=== PATIENT | female | born 1950 | race Caucasian/White ===

== ENCOUNTER 2019-03-09 10:29 | Emergency (ER) | payer OTHER ==
[~2019-03-09] VITALS: Ht 152.4 cm; Wt 74.4 kg
[~2019-03-09 10:29] MED LIST: DIVA500EC; DIVA500ER PO; ERGO50000 PO; FOLI1; LAMO100 PO; LEVSOD50 PO; LISI20 PO; PHENY100ER
[2019-03-09] MEDS ORDERED: LEVSOD50 PO (10:57)
[2019-03-09] MEDS ORDERED: [UNRECOGNIZED DRUG - OTHER] (10:57)
[2019-03-09] MEDS ORDERED: PRAV20 (10:57)
[2019-03-09] MEDS ORDERED: TORSE20 PO (10:57)
[2019-03-09] MEDS ORDERED: LISI5 PO (10:57)
[2019-03-09] MEDS ORDERED: LOSARTAN POTASS25 M2 PO (10:57)
[2019-03-09] MEDS ORDERED: IBANDRONATE SO150 MG PO (10:57)
[2019-03-09] MEDS ORDERED: Amlodipine Bes2.5 MG (10:57)
[2019-03-09] MEDS ORDERED: Keppra750 MG PO (10:58)
[2019-03-09] MEDS ORDERED: RISEDRONATE SO150 MG PO (10:58)
[2019-03-09] MEDS ORDERED: LOSARTAN POTAS100 MG PO (10:58)
[2019-03-09] MEDS ORDERED: LEVOCETIRIZINE D5 MG PO (10:58)
[2019-03-09] MEDS ORDERED: LAMOTRIGINE200 MG PO (10:58)
[2019-03-09] MEDS ORDERED: DONE10 PO (10:58)
[2019-03-09] MEDS ORDERED: OMEPRAZOLE DR 20 MG (10:58)
[2019-03-09] MEDS ORDERED: Potassium Chlo20 ME1 PO (10:58)
[2019-03-09 11:30] LABS: BASOPHILS ABSOLUTE AUTO 0.06 K/mm3 (0.00-0.23); BASOPHILS PERCENT AUTO 1 % (0-2); EOSINOPHILS ABSOLUTE AUTO 0.15 K/mm3 (0.00-0.68); EOSINOPHILS PERCENT AUTO 3 % (0-6); Hematocrit 40.6 % (33.0-51.0); Hemoglobin 13.7 g/dL (11.5-16.0); IMMATURE GRAN ABSOLUTE AUTO 0.03 K/mm3 (0.00-0.10); IMMATURE GRAN PERCENT AUTO 1 % (0-1); LYMPHOCYTES ABSOLUTE AUTO 1.37 K/mm3 (0.84-5.20); LYMPHOCYTES PERCENT AUTO 27 % (21-46); MONOCYTES ABSOLUTE AUTO 0.46 K/mm3 (0.16-1.47); MONOCYTES PERCENT AUTO 9 % (4-13); Mean Corpuscular HGB 30.2 pg (26.0-34.0); Mean Corpuscular HGB Conc 33.7 g/dL (31.5-36.5); Mean Corpuscular Volume 90 fL (80-100); NEUTROPHILS ABSOLUTE AUTO 2.97 K/mm3 (1.96-9.15); NEUTROPHILS PERCENT AUTO 59 % (41-73); RDW Coefficient Variation 12.3 % (11.7-14.2); RDW Standard Deviation 40.2 fL (35.1-46.3); Red Blood Cell Count 4.53 M/mm3 (3.80-5.20); White Blood Cell Count 5.04 K/mm3 (4.00-11.30)
[2019-03-09 11:35] LABS: Alanine Aminotransfer (ALT/SGP 26 U/L (12-78); Albumin, Blood 3.6 g/dL (3.4-5.0); Albumin/Globulin Ratio 0.9 (0.8-1.8); Alk Phos 108 U/L (50-136); Anion Gap 9 mmol/L (6-16); Aspartate Aminotrans (AST/SGOT 23 U/L (12-37); Bilirubin, Total 0.6 mg/dL (0.1-1.0); Blood Urea Nitrogen 15 mg/dL (8-24); Bun/Creatinine Ratio 17.3 (12.0-20.0); CO2, Blood 25 mmol/L (21-32); Calcium, Blood 8.5 mg/dL (8.5-10.1); Chloride, Blood 94 mmol/L (98-108); Creatinine, Blood 0.87 mg/dL (0.40-1.00); Globulin, Blood 3.8 g/dL (2.2-4.0); Glomerular Filtration Rate >60 (60-); Glucose, Blood 92 mg/dL (70-99); Sodium, Blood 128 mmol/L (136-145); Total Protein, Blood 7.4 g/dL (6.4-8.2)
[2019-03-09 11:38] LABS: Mean Platelet Volume 9.7 fL (9.1-12.4); Platelet Count 248 K/mm3 (150-400)
[2019-03-09] MEDS ORDERED: SUCR1 PO (11:54)
[2019-03-09] MEDS ORDERED: ONDA4ODT MM (11:54)
== END 2019-03-09 12:19 | disposition home or self-care (01) ==
LOC: ER 10:29
PROVIDERS: Emergency Medicine
DX: R10.13 Epigastric pain (principal); R11.0 Nausea; I10 Essential (primary) hypertension; K21.9 Gastro-esophageal reflux disease without esophagitis; Z88.0 Allergy status to penicillin; Z88.2 Allergy status to sulfonamides; Z88.8 Allergy status to other drugs, medicaments and biological substances; Z79.899 Other long term (current) drug therapy
CPT/HCPCS: 36415; 80053; 83690; 85025; 93005; 93010; 96374; 99284-25; J2405

== ENCOUNTER 2019-03-12 15:54 | Emergency (ER) | payer OTHER ==
[~2019-03-12] VITALS: Ht 165.1 cm; Wt 86.2 kg
[~2019-03-12 15:54] MED LIST changes: +Amlodipine Bes2.5 MG; +DONE10 PO; +IBANDRONATE SO150 MG PO; +Keppra750 MG PO; +LAMOTRIGINE200 MG PO; +LEVOCETIRIZINE D5 MG PO; +LISI5 PO; +LOSARTAN POTAS100 MG PO; +LOSARTAN POTASS25 M2 PO; +OMEPRAZOLE DR 20 MG; +ONDA4ODT MM; +PRAV20; +Potassium Chlo20 ME1 PO; +RISEDRONATE SO150 MG PO; +SUCR1 PO; +TORSE20 PO; +[UNRECOGNIZED DRUG - OTHER]
[2019-03-12 19:33] LABS: BASOPHILS ABSOLUTE AUTO 0.08 K/mm3 (0.00-0.23); BASOPHILS PERCENT AUTO 1 % (0-2); EOSINOPHILS ABSOLUTE AUTO 0.08 K/mm3 (0.00-0.68); EOSINOPHILS PERCENT AUTO 1 % (0-6); Hemoglobin 14.3 g/dL (11.5-16.0); IMMATURE GRAN ABSOLUTE AUTO 0.01 K/mm3 (0.00-0.10); IMMATURE GRAN PERCENT AUTO 0 % (0-1); LYMPHOCYTES ABSOLUTE AUTO 1.42 K/mm3 (0.84-5.20); LYMPHOCYTES PERCENT AUTO 20 % (21-46); MONOCYTES ABSOLUTE AUTO 0.62 K/mm3 (0.16-1.47); MONOCYTES PERCENT AUTO 9 % (4-13); Mean Corpuscular HGB 30.8 pg (26.0-34.0); Mean Corpuscular HGB Conc 31.8 g/dL (31.5-36.5); Mean Platelet Volume 9.5 fL (9.1-12.4); NEUTROPHILS ABSOLUTE AUTO 5.03 K/mm3 (1.96-9.15); NEUTROPHILS PERCENT AUTO 70 % (41-73); Platelet Count 358 K/mm3 (150-400); RDW Coefficient Variation 12.9 % (11.7-14.2); RDW Standard Deviation 46.1 fL (35.1-46.3); Red Blood Cell Count 4.64 M/mm3 (3.80-5.20); White Blood Cell Count 7.24 K/mm3 (4.00-11.30)
[2019-03-12 19:34] LABS: Mean Corpuscular Volume 97 fL (80-100)
[2019-03-12 19:55] LABS: Alanine Aminotransfer (ALT/SGP 26 U/L (12-78); Albumin, Blood 3.9 g/dL (3.4-5.0); Alk Phos 104 U/L (50-136); Anion Gap 8 mmol/L (6-16); Aspartate Aminotrans (AST/SGOT 23 U/L (12-37); Bilirubin, Total 0.7 mg/dL (0.1-1.0); Blood Urea Nitrogen 26 mg/dL (8-24); Bun/Creatinine Ratio 24.3 (12.0-20.0); CO2, Blood 22 mmol/L (21-32); Calcium, Blood 9.2 mg/dL (8.5-10.1); Chloride, Blood 105 mmol/L (98-108); Creatinine, Blood 1.07 mg/dL (0.40-1.00); Ethanol (Alcohol), Blood, Med <3 mg/dL; Glomerular Filtration Rate 54 (60-); Glucose, Blood 106 mg/dL (70-99); Magnesium, Blood 2.2 mg/dL (1.6-2.4); Potassium, Blood 4.2 mmol/L (3.5-5.5); Sodium, Blood 135 mmol/L (136-145); Total Protein, Blood 7.9 g/dL (6.4-8.2)
== END 2019-03-12 21:00 | disposition home or self-care (01) ==
LOC: ER 15:54
PROVIDERS: Emergency Medicine
DX: G40.909 Epilepsy, unspecified, not intractable, without status epilepticus (principal); Z88.0 Allergy status to penicillin; Z88.2 Allergy status to sulfonamides; Z88.8 Allergy status to other drugs, medicaments and biological substances; Z79.899 Other long term (current) drug therapy; I10 Essential (primary) hypertension; K21.9 Gastro-esophageal reflux disease without esophagitis
CPT/HCPCS: 70450; 80053; 82947; 83605; 83735; 84146; 85025; 93005; 93010; 96374; 99285-25; G0480; J2060

== ENCOUNTER → 2020-04-06 | Outpatient (CLI) | payer OTHER ==
[2020-04-06 17:54] LABS: Bilirubin, Urine Neg (Neg); Blood, Urine Neg (Neg); Glucose Qualitative, Urine Neg (Neg); Ketones, Urine Neg (Neg); Leukocyte Esterase, Urine 1+ (Neg); Nitrite, Urine Neg (Neg); Protein, Urine Neg (Neg); Specific Gravity, Urine 1.015 (1.003-1.022); Urobilinogen, Urine NORM (Normal)
[2020-04-06 18:13] LABS: Appearance, Urine Clear (Clear); Color, Urine Pale Yellow (P-Yellow)
[2020-04-06 18:34] LABS: Bacteria Few /hpf; Red Blood Cells, Urine 0-2 /hpf (0-2); Squamous Epithelial Cells Few /hpf (Few)
[2020-04-06 19:19] LABS: Protein, Urine Random 8.4 mg/dL (0.0-11.9)
[2020-04-06 19:39] LABS: Creatinine, Urine Random 17.8 mg/dL (27.00-270.00)
== END | disposition home or self-care (01) ==
LOC: LAB SHORT 12:00 → LAB 12:00
PROVIDERS: Internal Medicine
DX: N18.3 Chronic kidney disease, stage 3 (moderate) (principal)
CPT/HCPCS: 81001; 82570; 84156

== ENCOUNTER 2020-06-08 08:40 | Observation (INO) | payer OTHER ==
[~2020-06-08] VITALS: Ht 162.6 cm; Wt 75.3 kg
[2020-06-08 09:08] LABS: BASOPHILS ABSOLUTE AUTO 0.06 K/mm3 (0.00-0.23); BASOPHILS PERCENT AUTO 1 % (0-2); EOSINOPHILS ABSOLUTE AUTO 0.34 K/mm3 (0.00-0.68); EOSINOPHILS PERCENT AUTO 4 % (0-6); Hematocrit 40.5 % (33.0-51.0); Hemoglobin 13.3 g/dL (11.5-16.0); IMMATURE GRAN ABSOLUTE AUTO 0.02 K/mm3 (0.00-0.10); IMMATURE GRAN PERCENT AUTO 0 % (0-1); LYMPHOCYTES ABSOLUTE AUTO 2.06 K/mm3 (0.84-5.20); LYMPHOCYTES PERCENT AUTO 22 % (21-46); MONOCYTES ABSOLUTE AUTO 0.56 K/mm3 (0.16-1.47); MONOCYTES PERCENT AUTO 6 % (4-13); Mean Corpuscular HGB 28.7 pg (26.0-34.0); Mean Corpuscular HGB Conc 32.8 g/dL (31.5-36.5); Mean Corpuscular Volume 88 fL (80-100); Mean Platelet Volume 9.7 fL (9.1-12.4); NEUTROPHILS ABSOLUTE AUTO 6.22 K/mm3 (1.96-9.15); NEUTROPHILS PERCENT AUTO 67 % (41-73); Platelet Count 347 K/mm3 (150-400); RDW Coefficient Variation 13.2 % (11.7-14.2); RDW Standard Deviation 42.2 fL (35.1-46.3); Red Blood Cell Count 4.63 M/mm3 (3.80-5.20); White Blood Cell Count 9.26 K/mm3 (4.00-11.30)
[2020-06-08 09:23] LABS: International Normalized Ratio 0.94; Prothrombin Time Results 10.1 Sec (9.7-11.5)
[2020-06-08 09:28] LABS: Albumin, Blood 4.3 g/dL (3.4-5.0); Albumin/Globulin Ratio 1.1 (0.8-1.8); Bilirubin, Total 0.4 mg/dL (0.1-1.0); Bun/Creatinine Ratio 15.8 (12.0-20.0); Calcium, Blood 8.9 mg/dL (8.5-10.1); Creatinine, Blood 1.39 mg/dL (0.40-1.00); Potassium, Blood 4.5 mmol/L (3.5-5.5); Total Protein, Blood 8.3 g/dL (6.4-8.2)
[2020-06-08 10:09] LABS: Source, Urine Clean Catch
[2020-06-08 10:10] LABS: Ethanol (Alcohol), Blood, Med <3 mg/dL; Salicylate <1.7 mg/dL (2.8-20.0)
[2020-06-08 10:11] LABS: Acetaminophen, Random <2.0 ug/mL (10.0-30.0)
[2020-06-08 10:16] LABS: Appearance, Urine Clear (Clear); Bilirubin, Urine Neg (Neg); Blood, Urine Neg (Neg); Color, Urine Pale Yellow (P-Yellow); Glucose Qualitative, Urine Neg (Neg); Ketones, Urine Neg (Neg); Leukocyte Esterase, Urine Neg (Neg); Nitrite, Urine Neg (Neg); Protein, Urine Neg (Neg); Specific Gravity, Urine 1.005 (1.003-1.022); Urobilinogen, Urine NORM (Normal); pH, Urine 6.5 (5.0-8.0)
[2020-06-08 10:28] LABS: U Amphetamine Screen Not Detected; U Barbituate Screen Not Detected; U Benzodiazapine Screen Not Detected; U Buprenorphine Screen Not Detected; U Cannabinoids Screen Not Detected; U Cocaine Screen Not Detected; U Methadone Screen Not Detected; U Methamphetamine Screen Not Detected; U Opiates Screen Not Detected; U Oxycodone Screen Not Detected; U Phencyclidine Screen Not Detected; U Propoxyphene Screen Not Detected
[2020-06-08] MEDS ORDERED: ACET500 PO (10:43)
[2020-06-08] MEDS ORDERED: SUCRALFATE PO (12:13)
[2020-06-08] MEDS ORDERED: PRENATAL TABLE1 EAC2 PO (12:13)
[2020-06-08] MEDS ORDERED: PRAVASTATIN SOD20 MG PO (12:13)
[2020-06-08] MEDS ORDERED: SPIRONOLACTONE25 MG PO (12:13)
[2020-06-08] MEDS ORDERED: LOSA50 PO ×2 (12:14)
[2020-06-08] MEDS ORDERED: AMLO5 PO ×2 (12:14)
[2020-06-08] MEDS ORDERED: SYNTHROID50 MC1 PO (12:14)
[2020-06-08] MEDS ORDERED: VITAMIN D325 MC3 PO (12:14)
[2020-06-08] MEDS ORDERED: OMEP20ER PO (12:15)
[2020-06-08] MEDS ORDERED: TORSE20 PO (12:15)
[2020-06-08] MEDS ORDERED: IBANDRONATE SO150 MG PO ×2 (12:16)
[2020-06-08] MEDS ORDERED: ALBU8HFA2 INH (16:02)
[2020-06-08] MEDS ORDERED: LEVETIRACETAM1000 M1 PO (16:06)
[2020-06-08] MEDS ORDERED: LOSA25 PO ×2 (16:08)
--- NOTE | 2020-06-08 18:25 | NUR ---
SHE HAS BEEN ADMITTED TO 346 FROM THE ED. SHE IS OX4 BUT CANNOT REMEMBER THE CIRCUMSTANCES OF HER FALL THIS MORNING AT HOME. SHE DOESN'T KNOW IF SHE HAD A SEIZURE OR IT WAS SOMETHING ELSE. HER VERBAL RESPONSES ARE SLOW. HER SLIGHTLY SLURRED SPEECH IS NORMAL ACCORDING TO HER CAREGIVER. SHE IS HERE WITH HER NOW AND SAYS SHE SEEMS A THOUSAND TIMES BETTER THAN SHE WAS WHEN SHE LEFT FOR THE HOSPITAL. PT WAS HERE TO EVALUATE HER THIS AFTERNOON. SHE WILL BE A 2 PERSON ASSIST WITH WALKER AND GAITBELT. SHE HAS TREMORS, WEAKNESS AND BALANCE PROBLEMS. SHE ALSO NEEDED REPEATED QUEING. SHE VOIDED ON THE BSC THEN WENT BACK TO BED. BED ALARM IS ON AND 3 RAILS UP. TELE IS NSR. SCD'S ARE ON. SHE ONLY ATE A FEW BITES OF DINNER. SHE SAID SHE WASN'T HUNGRY AND IT DIDN'T LOOK VERY GOOD. VSS. SHE HAS NO SKIN WOUNDS. NO NEED FOR ISOLATION. CLEARANCE PROCESS WILL GET STARTED.
[2020-06-09 05:07] LABS: Bun/Creatinine Ratio 14.4 (12.0-20.0); Creatinine, Blood 1.32 mg/dL (0.40-1.00); Potassium, Blood 3.7 mmol/L (3.5-5.5)
--- NOTE | 2020-06-09 05:25 | NUR ---
SHIFT SUMMARY PT A/O X 3. PT KNOWS PERSON, PLACE, AND DATE. WAS UNSURE WHY SHE WAS IN THE HOSPITAL. WHEN REMINDED OF REASON FOR ADMISSION PT STATES THAT SHE "KIND OF REMEMBERS THAT". PT HAD UNEVENTFUL NIGHT. SLEPT WELL OFF AND ON. PT CONTINUES TO FEEL WEAK BUT STRENGTH SLIGHTLY IMPROVED. PT ABLE TO TRANSFER [place] [facility] [place] 1 [facility]IST AND FWW. PT CONTINENT THROUGHOUT THE NIGHT. SMALL AMOUNT OF BLOOD WITH WIPING APPEARS TO BE COMING FROM LABIA WHERE SKIN IS SOMEWHAT RAW. PT DOES REPORT BURNING PAIN, MORE SEVERE WITH URINATION IN VIOLET AREA. OTHERWISE NO COMPLAINTS OF PAIN. PT ON RA. VITAL SIGNS STABLE. WILL CONTINUE TO MONITOR AND REPORT TO DAY RN.
--- NOTE | 2020-06-09 09:48 | NUR ---
PT EVALUATED HER, GOT HER OOB, TO THE CHAIR, THE BATHROOM AND BACK TO BED. YESTERDAY'S EVAL WAS OT NOT PT. SHE IS A 1 PERSON ASSIST WITH A GAITBELT AND WALKER. SHE REMAINS SHAKEY BUT IMPROVED MOBILITY COMPARED TO YESTERDAY. SHE STILL HAD NO APPETITE FOR BREAKFAST. BED ALARM ON. CALL LIGHT IN REACH.
--- NOTE | 2020-06-09 13:03 | NUR ---
WAS HERE EARLIER. HE SAYS HE WILL DC HER. I LET HER CAREGIVER AND HER KNOW BY PHONE THAT SHE WILL BE ABLE TO COME BACK HOME THIS AFTERNOON.
--- NOTE | 2020-06-09 19:01 | NUR ---
SHE DISCHARGED AT 1735 TO HOME WITH HER AND HER CAREGIVER. SHE WAS GLAD TO GO HOME. SHE NEEDS 1 ASSIST TO AMBULATE BECAUSE SHE IS STILL SHAKEY. [facility] WILL F/U WITH HER AND SHE'LL HAVE HH THERAPIES.
== END 2020-06-09 17:30 | disposition home health service (06) ==
LOC: ER 08:40 → MEDS 11:45
PROVIDERS: Physician Assistant; ADMIT Internal Medicine
DX: G93.41 Metabolic encephalopathy (principal); R53.1 Weakness; J98.11 Atelectasis; R77.8 Other specified abnormalities of plasma proteins; I10 Essential (primary) hypertension; K21.9 Gastro-esophageal reflux disease without esophagitis; E78.5 Hyperlipidemia, unspecified; E03.9 Hypothyroidism, unspecified; G31.84 Mild cognitive impairment of uncertain or unknown etiology; Z79.899 Other long term (current) drug therapy; G40.909 Epilepsy, unspecified, not intractable, without status epilepticus; Z88.2 Allergy status to sulfonamides; Z88.0 Allergy status to penicillin; Z88.8 Allergy status to other drugs, medicaments and biological substances; W06.XXXA Fall from bed, initial encounter; Y92.009 Unspecified place in unspecified non-institutional (private) residence as the place of occurrence of the external cause
CPT/HCPCS: 36415; 70450; 71045; 80048; 80053; 81003; 84484; 85025; 85610; 87081; 93005; 93010; 96372; 97162; 97166; 97530; 97535; 99285-25; A9270-GY; G0378; G0480; J1650; P9612

== ENCOUNTER 2020-06-11 13:23 | Inpatient (IN) | payer OTHER ==
[~2020-06-11] VITALS: Ht 165.1 cm; Wt 77.1 kg
[~2020-06-11 13:23] MED LIST changes: +ACET500 PO; +ALBU8HFA2 INH; +AMLO5 PO; +LEVETIRACETAM1000 M1 PO; +LOSA25 PO; +LOSA50 PO; +OMEP20ER PO; +PRAVASTATIN SOD20 MG PO; +PRENATAL TABLE1 EAC2 PO; +SPIRONOLACTONE25 MG PO; +SUCRALFATE PO; +SYNTHROID50 MC1 PO; +VITAMIN D325 MC3 PO
[2020-06-11 15:57] LABS: Albumin, Blood 3.8 g/dL (3.4-5.0); Bilirubin, Total 0.3 mg/dL (0.1-1.0); Bun/Creatinine Ratio 18.8 (12.0-20.0); Creatinine, Blood 2.08 mg/dL (0.40-1.00); Globulin, Blood 3.7 g/dL (2.2-4.0); Potassium, Blood 4.8 mmol/L (3.5-5.5); Total Protein, Blood 7.5 g/dL (6.4-8.2)
[2020-06-11 16:05] LABS: BASOPHILS ABSOLUTE AUTO 0.04 K/mm3 (0.00-0.23); BASOPHILS PERCENT AUTO 1 % (0-2); EOSINOPHILS ABSOLUTE AUTO 0.03 K/mm3 (0.00-0.68); EOSINOPHILS PERCENT AUTO 0 % (0-6); Hematocrit 37.6 % (33.0-51.0); Hemoglobin 12.1 g/dL (11.5-16.0); IMMATURE GRAN ABSOLUTE AUTO 0.04 K/mm3 (0.00-0.10); IMMATURE GRAN PERCENT AUTO 1 % (0-1); LYMPHOCYTES ABSOLUTE AUTO 0.72 K/mm3 (0.84-5.20); LYMPHOCYTES PERCENT AUTO 11 % (21-46); MONOCYTES ABSOLUTE AUTO 0.12 K/mm3 (0.16-1.47); MONOCYTES PERCENT AUTO 2 % (4-13); Mean Corpuscular HGB 28.7 pg (26.0-34.0); Mean Corpuscular HGB Conc 32.2 g/dL (31.5-36.5); Mean Corpuscular Volume 89 fL (80-100); NEUTROPHILS PERCENT AUTO 86 % (41-73); RDW Coefficient Variation 13.3 % (11.7-14.2); RDW Standard Deviation 43.5 fL (35.1-46.3); Red Blood Cell Count 4.22 M/mm3 (3.80-5.20); White Blood Cell Count 6.85 K/mm3 (4.00-11.30)
[2020-06-11] MEDS ORDERED: POTCHL20ER PO ×2 (21:48)
--- NOTE | 2020-06-12 02:43 | NUR ---
06/12/20 2225 PT CALLED TO GET UP. WATERSHED ENGINEER AND RN ASSISTED TO BR AND VOIDED 400 ML. ASSISTED TO BED AND BLADDER SCAN + 102 ML. NO OTHER COMPLAINTS. BED ALARM ON.
[2020-06-12 06:38] LABS: Calcium, Blood 8.6 mg/dL (8.5-10.1); Creatinine, Blood 1.68 mg/dL (0.40-1.00); Potassium, Blood 4.1 mmol/L (3.5-5.5)
--- NOTE | 2020-06-12 07:43 | NUR ---
06/12/20 0600 PT AWAKE AND SLEPT ON AND OFF LAST NIGHT. VITALS STABLE. DENIES ANY NAUSEA OR DISCOMFORT SINCE BEING ADMITTED TO MEDICAL FLOOR. REPOSITIONED OFF COCCYX SIDE TO SIDE. MEPILEX DRESSING PLACED TO PINK COCCYX ON ADMIT. TAKING ORAL FLUIDS FAIR. LITTLE APPETITE/THIRST. BED ALARM ON WHEN IN BED SHE HAS FALL HISTORY AT HOME.
--- NOTE | 2020-06-12 18:04 | NUR ---
ALERT AND ORIENTED WITH FORGETFULNESS. PLEASANT AND COOPERATIVE WITH STAFF. VITALS HAVE BEEN STABLE AND WNL. CONTINUES ON IV ABX WITHOUT S/SX OF ADVERSE REACTIONS NOTED OR REPORTED. NO ACUTE CHANGES TO REPORT ON AT THIS TIME. WILL CONTINUE TO MONITOR AND PROVIDE CARE NEEDED.
[2020-06-13 04:41] LABS: BASOPHILS ABSOLUTE AUTO 0.07 K/mm3 (0.00-0.23); BASOPHILS PERCENT AUTO 1 % (0-2); EOSINOPHILS ABSOLUTE AUTO 0.19 K/mm3 (0.00-0.68); EOSINOPHILS PERCENT AUTO 3 % (0-6); Hematocrit 34.5 % (33.0-51.0); Hemoglobin 10.9 g/dL (11.5-16.0); IMMATURE GRAN ABSOLUTE AUTO 0.03 K/mm3 (0.00-0.10); IMMATURE GRAN PERCENT AUTO 1 % (0-1); LYMPHOCYTES ABSOLUTE AUTO 1.82 K/mm3 (0.84-5.20); LYMPHOCYTES PERCENT AUTO 31 % (21-46); MONOCYTES ABSOLUTE AUTO 0.53 K/mm3 (0.16-1.47); MONOCYTES PERCENT AUTO 9 % (4-13); Mean Corpuscular HGB 28.6 pg (26.0-34.0); Mean Corpuscular HGB Conc 31.6 g/dL (31.5-36.5); Mean Corpuscular Volume 91 fL (80-100); Mean Platelet Volume 10.1 fL (9.1-12.4); NEUTROPHILS ABSOLUTE AUTO 3.25 K/mm3 (1.96-9.15); NEUTROPHILS PERCENT AUTO 55 % (41-73); Platelet Count 299 K/mm3 (150-400); RDW Coefficient Variation 13.6 % (11.7-14.2); RDW Standard Deviation 44.6 fL (35.1-46.3); Red Blood Cell Count 3.81 M/mm3 (3.80-5.20); White Blood Cell Count 5.89 K/mm3 (4.00-11.30)
[2020-06-13 05:06] LABS: Albumin, Blood 3.4 g/dL (3.4-5.0); Albumin/Globulin Ratio 1.1 (0.8-1.8); Bilirubin, Total 0.4 mg/dL (0.1-1.0); Calcium, Blood 8.5 mg/dL (8.5-10.1); Creatinine, Blood 1.28 mg/dL (0.40-1.00); Globulin, Blood 3.2 g/dL (2.2-4.0); Magnesium, Blood 2.1 mg/dL (1.6-2.4); Phosphorus, Blood 2.6 mg/dL (2.5-4.9); Potassium, Blood 3.4 mmol/L (3.5-5.5); Total Protein, Blood 6.6 g/dL (6.4-8.2)
--- NOTE | 2020-06-13 06:11 | NUR ---
SHIFT SUMMARY- PT. SLEPT ON/OFF DURING THE NIGHT, NO APPARENT DISTRESS NOTED. C/O NAUSEA 1X, MEDICATED PER EMAR WITH GOOD EFFECT. NO OTHER COMLAINTS T/O THE SHIFT. CALL LIGHT WITHIN REACH AND SIDE RAILS UPX2. WILL CONT TO MONITOR.
--- NOTE | 2020-06-13 15:24 | NUR ---
PATIENT IS ALERT AND ORIENTED. COOPERATIVE WITH STAFF. VITALS ARE STABLE; HOWEVER BP CONTINUES TO RUN ELEVATED. PATIENT CONTINUES ON IV FLUIDS PER EMAR AND IV ABX WITHOUT S/SX OF ADVERSE REACTIONS NOTED OR REPORTED. COOPERATIVE WITH CARE. NO ACUTE CHANGES TO REPORT ON AT THIS TIME. WILL CONTINUE TO MONITOR AND PROVIDE CARE NEEDED.
--- NOTE | 2020-06-14 04:57 | NUR ---
SHIFT SUMMARY ADMITTED FOR SIGMOID DIVERTICULITIS. FULL CODE. HOPEFUL FOR DC TODAY. CAREGIVER IS AT HOME. 1 BM THIS SHIFT, 1 ON PREVIOUS SHIFT. IV FLUIDS INFUSING ORDERED. NO NEW CONCERNS THIS SHIFT
[2020-06-14 05:35] LABS: BASOPHILS ABSOLUTE AUTO 0.08 K/mm3 (0.00-0.23); BASOPHILS PERCENT AUTO 1 % (0-2); EOSINOPHILS ABSOLUTE AUTO 0.27 K/mm3 (0.00-0.68); EOSINOPHILS PERCENT AUTO 4 % (0-6); Hematocrit 38.5 % (33.0-51.0); Hemoglobin 12.6 g/dL (11.5-16.0); IMMATURE GRAN ABSOLUTE AUTO 0.04 K/mm3 (0.00-0.10); IMMATURE GRAN PERCENT AUTO 1 % (0-1); LYMPHOCYTES ABSOLUTE AUTO 2.02 K/mm3 (0.84-5.20); LYMPHOCYTES PERCENT AUTO 27 % (21-46); MONOCYTES ABSOLUTE AUTO 0.64 K/mm3 (0.16-1.47); MONOCYTES PERCENT AUTO 8 % (4-13); Mean Corpuscular HGB 28.8 pg (26.0-34.0); Mean Corpuscular HGB Conc 32.7 g/dL (31.5-36.5); Mean Corpuscular Volume 88 fL (80-100); Mean Platelet Volume 10.2 fL (9.1-12.4); NEUTROPHILS ABSOLUTE AUTO 4.58 K/mm3 (1.96-9.15); NEUTROPHILS PERCENT AUTO 60 % (41-73); Platelet Count 313 K/mm3 (150-400); RDW Coefficient Variation 13.2 % (11.7-14.2); RDW Standard Deviation 43.1 fL (35.1-46.3); Red Blood Cell Count 4.37 M/mm3 (3.80-5.20); White Blood Cell Count 7.63 K/mm3 (4.00-11.30)
[2020-06-14 05:54] LABS: Bun/Creatinine Ratio 17.4 (12.0-20.0); Calcium, Blood 8.8 mg/dL (8.5-10.1); Creatinine, Blood 1.09 mg/dL (0.40-1.00); Potassium, Blood 3.3 mmol/L (3.5-5.5)
[2020-06-14] MEDS ORDERED: NUTRISOURCE FI1 EACH PO ×2 (13:10)
[2020-06-14] MEDS ORDERED: MIRALAX17 GM PO ×2 (13:10)
[2020-06-14] MEDS ORDERED: METR500 PO ×2 (13:10)
[2020-06-14] MEDS ORDERED: LEVOFLOXACIN250 MG PO ×2 (13:11)
--- NOTE | 2020-06-14 16:06 | NUR ---
RECEIVED REPORT FROM NOC SHIFT, a+o, iv infusing but swelling of arm noted and iv dc'd and another started in other arm, pt tolerated procedure well, abx infused with no s/s of infiltration or infection, pt requested to go home, caregiver arrived and reviewed discharge orders, medications and stay, removed iv with no difficulty or issue, changed pt just before leaving but had bm before got into car, caregiver dealt issue, pt pleasent and alert as leaving
== END 2020-06-14 14:26 | disposition home health service (06) | DRG 392 ==
LOC: ER 13:23 → MEDS 13:24
PROVIDERS: Emergency Medicine; Family Medicine; Hospitalist; ADMIT Hospitalist
DX: K57.32 Diverticulitis of large intestine without perforation or abscess without bleeding (principal); N17.9 Acute kidney failure, unspecified; N18.30 Chronic kidney disease, stage 3 unspecified; I12.9 Hypertensive chronic kidney disease with stage 1 through stage 4 chronic kidney disease, or unspecified chronic kidney disease; K21.9 Gastro-esophageal reflux disease without esophagitis; E78.5 Hyperlipidemia, unspecified; E03.9 Hypothyroidism, unspecified; F03.90 Unspecified dementia, unspecified severity, without behavioral disturbance, psychotic disturbance, mood disturbance, and anxiety; K44.9 Diaphragmatic hernia without obstruction or gangrene; G40.909 Epilepsy, unspecified, not intractable, without status epilepticus; Z88.0 Allergy status to penicillin; Z88.2 Allergy status to sulfonamides
CPT/HCPCS: 36415; 71045; 74176; 80048; 80053; 80175; 83690; 83735; 84100; 85025; 93005; 93010; 96361; 96365; 96366; 96368; 96372; 96374; 96375; 97110; 97161; 97165; 97530; 97535; 99285-25; A9270; A9270-GY; C1751; G0378; J1170; J1650; J1956; J2405; J3480; J7030; J7050; J7120

== ENCOUNTER → 2021-02-10 | Outpatient (CLI) | payer OTHER ==
[~2021-02-10] MED LIST changes: +ADVAIR HFA 230-28 GM INH; +LEVOFLOXACIN250 MG PO; -LOSA50 PO; +LOSARTAN POTAS100 M1 PO; +METR500 PO; +MIRALAX17 GM PO; +NUTRISOURCE FI1 EACH PO; +POTCHL20ER PO; +Ventolin/Prove6.7 GM INH
== END | disposition home or self-care (01) ==
LOC: OLS 10:20 → LAB SHORT 10:20
DX: R10.13 Epigastric pain (principal)
CPT/HCPCS: 87015; 87045; 87046; 87205; 87899

== ENCOUNTER 2021-02-13 12:06 | Observation (INO) | payer OTHER ==
[~2021-02-13] VITALS: Wt 74.2 kg
[~2021-02-13 12:06] MED LIST changes: -ADVAIR HFA 230-28 GM INH; -Ventolin/Prove6.7 GM INH
[2021-02-13 12:10] LABS: BASOPHILS ABSOLUTE AUTO 0.07 K/mm3 (0.00-0.23); BASOPHILS PERCENT AUTO 1 % (0-2); EOSINOPHILS PERCENT AUTO 1 % (0-6); Hematocrit 42.7 % (33.0-51.0); Hemoglobin 14.1 g/dL (11.5-16.0); IMMATURE GRAN ABSOLUTE AUTO 0.05 K/mm3 (0.00-0.10); IMMATURE GRAN PERCENT AUTO 1 % (0-1); LYMPHOCYTES ABSOLUTE AUTO 1.43 K/mm3 (0.84-5.20); LYMPHOCYTES PERCENT AUTO 18 % (21-46); MONOCYTES ABSOLUTE AUTO 0.55 K/mm3 (0.16-1.47); MONOCYTES PERCENT AUTO 7 % (4-13); Mean Corpuscular HGB 29.8 pg (26.0-34.0); Mean Corpuscular Volume 90 fL (80-100); Mean Platelet Volume 10.7 fL (9.1-12.4); NEUTROPHILS ABSOLUTE AUTO 5.91 K/mm3 (1.96-9.15); NEUTROPHILS PERCENT AUTO 73 % (41-73); Platelet Count 340 K/mm3 (150-400); RDW Standard Deviation 42.2 fL (35.1-46.3); Red Blood Cell Count 4.73 M/mm3 (3.80-5.20); White Blood Cell Count 8.11 K/mm3 (4.00-11.30)
[2021-02-13 12:54] LABS: Albumin, Blood 3.9 g/dL (3.4-5.0); Bilirubin, Total 0.3 mg/dL (0.1-1.0); Bun/Creatinine Ratio 18.6 (12.0-20.0); Calcium, Blood 8.2 mg/dL (8.5-10.1); Creatinine, Blood 1.4 mg/dL (0.40-1.00); Potassium, Blood 4.3 mmol/L (3.5-5.5); Total Protein, Blood 7.9 g/dL (6.4-8.2)
--- NOTE | 2021-02-13 15:45 | NUR ---
PATIENT WAS A DIRECT ADMIT FROM [facility]. ARRIVED BY WHEEL CHAIR WITH HER GUEST SERVICES COORDINATOR AT 1402 AND TRANSFERED TO HOSPITAL BED WITH THE ASSISTANCE OF ONE PERSON AB. REQUESTED THAT I GET THE PATIENTS' MED RECORDS AND MED LIST FROM ; FAX SENT TO [facility] WITH SUCH REQUEST; AWAITING REPLY. PATIENT IN ROOM WITH FLUIDS RUNNING PER EMAR. NPO PER ORDERS. VITALS STABLE. CAREGIVER REMAINS AT BEDSIDE AT THIS TIME. PATIENT AMBULATES WITH ONE PERSON ASSIST AND WALKER AT BASELINE. CALL LIGHT IN REACH.
[2021-02-14 05:07] LABS: BASOPHILS ABSOLUTE AUTO 0.05 K/mm3 (0.00-0.23); BASOPHILS PERCENT AUTO 1 % (0-2); EOSINOPHILS ABSOLUTE AUTO 0.12 K/mm3 (0.00-0.68); EOSINOPHILS PERCENT AUTO 2 % (0-6); IMMATURE GRAN ABSOLUTE AUTO 0.01 K/mm3 (0.00-0.10); IMMATURE GRAN PERCENT AUTO 0 % (0-1); LYMPHOCYTES ABSOLUTE AUTO 1.44 K/mm3 (0.84-5.20); LYMPHOCYTES PERCENT AUTO 21 % (21-46); MONOCYTES ABSOLUTE AUTO 0.54 K/mm3 (0.16-1.47); MONOCYTES PERCENT AUTO 8 % (4-13); Mean Corpuscular HGB 29.6 pg (26.0-34.0); Mean Corpuscular HGB Conc 34.3 g/dL (31.5-36.5); Mean Corpuscular Volume 86 fL (80-100); Mean Platelet Volume 10.4 fL (9.1-12.4); NEUTROPHILS PERCENT AUTO 69 % (41-73); Platelet Count 322 K/mm3 (150-400); RDW Coefficient Variation 12.8 % (11.7-14.2); RDW Standard Deviation 39.9 fL (35.1-46.3); Red Blood Cell Count 4.05 M/mm3 (3.80-5.20); White Blood Cell Count 6.86 K/mm3 (4.00-11.30)
[2021-02-14 05:26] LABS: Albumin, Blood 3.4 g/dL (3.4-5.0); Bilirubin, Total 0.3 mg/dL (0.1-1.0); Bun/Creatinine Ratio 20.8 (12.0-20.0); Calcium, Blood 7.7 mg/dL (8.5-10.1); Creatinine, Blood 1.06 mg/dL (0.40-1.00); Globulin, Blood 3.4 g/dL (2.2-4.0); Magnesium, Blood 2.7 mg/dL (1.6-2.4); Potassium, Blood 3.9 mmol/L (3.5-5.5); Total Protein, Blood 6.8 g/dL (6.4-8.2)
[2021-02-14] MEDS ORDERED: Ventolin/Prove6.7 GM INH (13:00)
[2021-02-14] MEDS ORDERED: ADVAIR HFA 230-28 GM INH (13:04)
--- NOTE | 2021-02-14 13:04 | NUR ---
ADMIT:02/13/21 DISCHARGE: DX: Abdominal pain CC: [email or web address] ARUN CALL: John Nascimento [phone] RESIDENCE: Home with spouse CAREGIVER: John Nascimento [phone] Jonny IBANEZ, Spouse / Partner, DX: Alzheimer's, cerebral atrophy, CKD-stage 3, Dementia, epigastric pain, see list DME: body weight scale, shower grab bar, BP cuff, shower chair, 4-WW, standard wheelchair, CCM: Referral2019 HOME HEALTH: [facility]- 2019 SUMMARY: 02/14/21- Per chart review, pt is a direct admit from [facility]. Caregiver brought the pt in. There is no plan for d/c at this time. Spoke with John, who is the pt's full-time caregiver. She reports that the pt was not independent prior to coming into the hospital and she is in their home every day for 6-8 hours. Pt is not active with home health services at this time. The pt lives with her in their single-story home with working utilities. There are no stairs to get into the home. John takes the pt to all her appts and picks up her medications and helps with medication management. Pt's pharmacy is [facility]. Pt has no DME needs. John states that the pt would not do well in any place other than home with her . She reports that both the pt and her need each other and pt's health would get worse without him. John brought the to the hospital today to be with her. Informed John that there is no plan for d/c at this time and would stay in contact with her to discuss her discharge plan when it comes time. -greg
--- NOTE | 2021-02-14 17:50 | NUR ---
PT RESTING IN BED, REMAINS ALERT AND ORIENTED TP PERSON, PLACE AND SITUATION. PT TOLERATED CLEAR LIQ FOR LUNCH AND HAS BEEN ADVANCED TO FULL LIQ FOR DINNER. PER MD, IF PT TOLERATES REG DIET WELL AND HAS A BM TOMORROW, PT MAY POTENTIALLY DC HOME. PT REMAINS A 1 ANGELITA WITH FFW TO BSC. STAFF WILL CONT TO MONITOR.
--- NOTE | 2021-02-15 04:45 | NUR ---
SHIFT SUMMARY PT HAD AN UNEVENTFUL NIGHT. SLEPT WELL OFF AND ON. NO COMPLAINTS OF ABD PAIN OR DISCOMFORT. DENIES NAUSEA. ASSISTED W/ SHOWER BY TREE AND SHRUB TECHNICIAN. VITAL SIGNS STABLE. WILL CONTINUE TO MONITOR.
== END 2021-02-15 12:43 | disposition home health service (06) ==
LOC: LAB SHORT 12:06 → MEDS 12:07 → LAB SHORT 13:49 → MEDS 19:22
PROVIDERS: Family Medicine; ADMIT Internal Medicine
DX: R10.9 Unspecified abdominal pain (principal); E87.2 Acidosis; N17.9 Acute kidney failure, unspecified; I12.9 Hypertensive chronic kidney disease with stage 1 through stage 4 chronic kidney disease, or unspecified chronic kidney disease; N18.30 Chronic kidney disease, stage 3 unspecified; E87.1 Hypo-osmolality and hyponatremia; J44.9 Chronic obstructive pulmonary disease, unspecified; E03.9 Hypothyroidism, unspecified; G30.9 Alzheimer's disease, unspecified; M81.0 Age-related osteoporosis without current pathological fracture; G40.909 Epilepsy, unspecified, not intractable, without status epilepticus
CPT/HCPCS: 76700; 80053; 83605; 83735; 85025; 96365; 96366; 96372; 96376; G0378; J1650; J1953; J7030

== ENCOUNTER → 2021-06-15 | Outpatient (CLI) | payer OTHER ==
[~2021-06-15] MED LIST changes: +ADVAIR HFA 230-28 GM INH; +Ventolin/Prove6.7 GM INH
== END | disposition home or self-care (01) ==
LOC: LAB SHORT 08:15
DX: R10.13 Epigastric pain (principal)
CPT/HCPCS: 87338

== ENCOUNTER 2022-03-14 10:09 | Emergency (ER) | payer OTHER ==
[~2022-03-14] VITALS: Ht 152.4 cm; Wt 77.1 kg
[2022-03-14] MEDS ORDERED: IBUP400 PO (12:43)
[2022-03-14] MEDS ORDERED: ACET500 PO (12:43)
== END 2022-03-14 13:46 | disposition home or self-care (01) ==
LOC: ER 10:09
DX: S52.532A Colles' fracture of left radius, initial encounter for closed fracture (principal); E03.9 Hypothyroidism, unspecified; I12.9 Hypertensive chronic kidney disease with stage 1 through stage 4 chronic kidney disease, or unspecified chronic kidney disease; N18.30 Chronic kidney disease, stage 3 unspecified; W18.09XA Striking against other object with subsequent fall, initial encounter; Z88.0 Allergy status to penicillin; Z88.2 Allergy status to sulfonamides; Z88.8 Allergy status to other drugs, medicaments and biological substances; Z87.891 Personal history of nicotine dependence; Z79.899 Other long term (current) drug therapy
CPT/HCPCS: 73100; A9270; J2704; J3010; J7030

== ENCOUNTER → 2022-03-20 | Outpatient (CLI) | payer OTHER ==
[~2022-03-20] MED LIST changes: +IBUP400 PO
[2022-03-20 18:31] LABS: Creatinine, Urine Random 19.8 mg/dL (27.00-270.00); Protein, Urine Random 5.3 mg/dL (0.0-11.9); Protein/Creat Ratio, Ur Random 0.3
== END | disposition home or self-care (01) ==
LOC: LAB SHORT 11:00 → LAB 11:00
PROVIDERS: Internal Medicine Nephrology
DX: N18.2 Chronic kidney disease, stage 2 (mild) (principal)
CPT/HCPCS: 82570; 84156

== ENCOUNTER 2022-07-14 08:32 | Inpatient (IN) | payer OTHER ==
[2022-07-21] MEDS ORDERED: METO25ER PO (10:26)
[2022-07-21] MEDS ORDERED: TORSE20 PO (10:27)
[2022-07-21] MEDS ORDERED: PRED20 PO (10:27)
== END 2022-07-21 18:00 | disposition home health service (06) | DRG 280 ==
DX: I21.4 Non-ST elevation (NSTEMI) myocardial infarction (principal); I50.21 Acute systolic (congestive) heart failure; J96.01 Acute respiratory failure with hypoxia; J18.9 Pneumonia, unspecified organism; I13.0 Hypertensive heart and chronic kidney disease with heart failure and stage 1 through stage 4 chronic kidney disease, or unspecified chronic kidney disease; J44.1 Chronic obstructive pulmonary disease with (acute) exacerbation; J44.0 Chronic obstructive pulmonary disease with (acute) lower respiratory infection; N17.9 Acute kidney failure, unspecified; R33.8 Other retention of urine; G30.9 Alzheimer's disease, unspecified; F02.80 Dementia in other diseases classified elsewhere, unspecified severity, without behavioral disturbance, psychotic disturbance, mood disturbance, and anxiety; K21.9 Gastro-esophageal reflux disease without esophagitis; E83.51 Hypocalcemia; E03.9 Hypothyroidism, unspecified; G40.909 Epilepsy, unspecified, not intractable, without status epilepticus; I27.20 Pulmonary hypertension, unspecified; N18.30 Chronic kidney disease, stage 3 unspecified; E66.9 Obesity, unspecified; M81.0 Age-related osteoporosis without current pathological fracture; Z20.822 Contact with and (suspected) exposure to COVID-19; Z88.0 Allergy status to penicillin; Z88.2 Allergy status to sulfonamides; Z88.8 Allergy status to other drugs, medicaments and biological substances; Z79.899 Other long term (current) drug therapy; Z79.51 Long term (current) use of inhaled steroids; Z90.49 Acquired absence of other specified parts of digestive tract; Z98.890 Other specified postprocedural states; Z87.891 Personal history of nicotine dependence; Z68.35 Body mass index [BMI] 35.0-35.9, adult; Z98.49 Cataract extraction status, unspecified eye

== ENCOUNTER 2022-10-03 10:56 | Emergency (ER) | payer OTHER ==
[~2022-10-03] VITALS: Ht 152.4 cm; Wt 72.6 kg
[~2022-10-03 10:56] MED LIST changes: +METO25ER PO; +PRED20 PO
[2022-10-03 11:45] LABS: BASOPHILS ABSOLUTE AUTO 0.05 K/mm3 (0.00-0.23); BASOPHILS PERCENT AUTO 1 % (0-2); EOSINOPHILS ABSOLUTE AUTO 0.24 K/mm3 (0.00-0.68); EOSINOPHILS PERCENT AUTO 4 % (0-6); Hematocrit 39.7 % (33.0-51.0); Hemoglobin 13.3 g/dL (11.5-16.0); IMMATURE GRAN ABSOLUTE AUTO 0.03 K/mm3 (0.00-0.10); IMMATURE GRAN PERCENT AUTO 1 % (0-1); LYMPHOCYTES ABSOLUTE AUTO 2.04 K/mm3 (0.84-5.20); LYMPHOCYTES PERCENT AUTO 32 % (21-46); MONOCYTES PERCENT AUTO 6 % (4-13); Mean Corpuscular HGB 28.5 pg (26.0-34.0); Mean Corpuscular HGB Conc 33.5 g/dL (31.5-36.5); Mean Corpuscular Volume 85 fL (80-100); Mean Platelet Volume 9.8 fL (9.1-12.4); NEUTROPHILS ABSOLUTE AUTO 3.59 K/mm3 (1.96-9.15); NEUTROPHILS PERCENT AUTO 57 % (41-73); Platelet Count 395 K/mm3 (150-400); RDW Coefficient Variation 13.4 % (11.7-14.2); RDW Standard Deviation 42.1 fL (35.1-46.3); Red Blood Cell Count 4.66 M/mm3 (3.80-5.20); White Blood Cell Count 6.35 K/mm3 (4.00-11.30)
[2022-10-03 12:07] LABS: Albumin, Blood 3.5 g/dL (3.4-5.0); Albumin/Globulin Ratio 0.8 (0.8-1.8); Bilirubin, Total 0.3 mg/dL (0.1-1.0); Bun/Creatinine Ratio 25.9 (12.0-20.0); Calcium, Blood 8.7 mg/dL (8.5-10.1); Creatinine, Blood 1.08 mg/dL (0.40-1.00); Globulin, Blood 4.3 g/dL (2.2-4.0); Potassium, Blood 3.2 mmol/L (3.5-5.5); Total Protein, Blood 7.8 g/dL (6.4-8.2)
[2022-10-03 12:22] LABS: Influenza A, PCR NEGATIVE (NEGATIVE); Influenza B, PCR NEGATIVE (NEGATIVE); Resp Syncytial Virus, PCR NEGATIVE (NEGATIVE); SARS-Cov-2 (COVID-19) PCR, MMC NEGATIVE (NEGATIVE)
[2022-10-03] MEDS ORDERED: DOXY100 PO (13:58)
[2022-10-03] MEDS ORDERED: PRED20 PO (13:58)
[2022-10-03] MEDS ORDERED: ALBU90OI INH (15:37)
== END 2022-10-03 15:46 | disposition home or self-care (01) ==
LOC: ER 10:56
PROVIDERS: Student in an Organized Health Care Education/Training Program
DX: J44.1 Chronic obstructive pulmonary disease with (acute) exacerbation (principal); E87.6 Hypokalemia; G30.9 Alzheimer's disease, unspecified; F02.80 Dementia in other diseases classified elsewhere, unspecified severity, without behavioral disturbance, psychotic disturbance, mood disturbance, and anxiety; J96.11 Chronic respiratory failure with hypoxia; I12.9 Hypertensive chronic kidney disease with stage 1 through stage 4 chronic kidney disease, or unspecified chronic kidney disease; N18.30 Chronic kidney disease, stage 3 unspecified; E03.9 Hypothyroidism, unspecified; Z99.81 Dependence on supplemental oxygen; Z88.0 Allergy status to penicillin; Z88.2 Allergy status to sulfonamides; Z88.8 Allergy status to other drugs, medicaments and biological substances; Z79.899 Other long term (current) drug therapy; Z20.822 Contact with and (suspected) exposure to COVID-19
CPT/HCPCS: 0241U; 36415; 71046; 80053; 83735; 83880; 84145; 85025; 93005; 93010; 94640; 94664; 96374; 99284-25; A9270; J2405; J7512

== ENCOUNTER 2023-10-03 07:50 | Emergency (ER) | payer OTHER ==
[~2023-10-03] VITALS: Ht 165.1 cm; Wt 77.1 kg
[~2023-10-03 07:50] MED LIST changes: +ALBU90OI INH; +DOXY100 PO
[2023-10-03] MEDS ORDERED: Ondansetron HCl 2 MG / ML 2ML Vial IV ONE (08:50)
[2023-10-03] MEDS ORDERED: NS 1,000 ML IV SCH ×2 (08:50→10:20)
[2023-10-03 08:58] LABS: BASOPHILS ABSOLUTE AUTO 0.02 K/mm3 (0.00-0.23); BASOPHILS PERCENT AUTO 1 % (0-2); EOSINOPHILS ABSOLUTE AUTO 0.07 K/mm3 (0.00-0.68); EOSINOPHILS PERCENT AUTO 2 % (0-6); Hematocrit 42.9 % (33.0-51.0); Hemoglobin 14.1 g/dL (11.5-16.0); IMMATURE GRAN ABSOLUTE AUTO 0.01 K/mm3 (0.00-0.10); IMMATURE GRAN PERCENT AUTO 0 % (0-1); LYMPHOCYTES ABSOLUTE AUTO 0.95 K/mm3 (0.84-5.20); LYMPHOCYTES PERCENT AUTO 28 % (21-46); MONOCYTES PERCENT AUTO 9 % (4-13); Mean Corpuscular HGB 27.7 pg (26.0-34.0); Mean Corpuscular HGB Conc 32.9 g/dL (31.5-36.5); Mean Corpuscular Volume 84 fL (80-100); Mean Platelet Volume 9.3 fL (9.1-12.4); NEUTROPHILS ABSOLUTE AUTO 2.08 K/mm3 (1.96-9.15); NEUTROPHILS PERCENT AUTO 61 % (41-73); Platelet Count 288 K/mm3 (150-400); RDW Coefficient Variation 12.4 % (11.7-14.2); Red Blood Cell Count 5.09 M/mm3 (3.80-5.20); White Blood Cell Count 3.43 K/mm3 (4.00-11.30)
[2023-10-03 09:05] LABS: Albumin, Blood 3.6 g/dL (3.4-5.0); Albumin/Globulin Ratio 0.8 (0.8-1.8); Bilirubin, Total 0.4 mg/dL (0.1-1.0); Bun/Creatinine Ratio 13.3 (12.0-20.0); Calcium, Blood 8.6 mg/dL (8.5-10.1); Creatinine, Blood 0.97 mg/dL (0.40-1.00); Globulin, Blood 4.6 g/dL (2.2-4.0); Potassium, Blood 3.8 mmol/L (3.5-5.5); Total Protein, Blood 8.2 g/dL (6.4-8.2)
[2023-10-03] MEDS ORDERED: LOPE2C PO (12:18)
[2023-10-03 12:30] VITALS: BP 169/78
[2023-10-03] MEDS ORDERED: ONDA4ODT MM (13:30)
[2023-10-06] MEDS ORDERED: LAMICTAL XR200 MG PO (17:28)
== END 2023-10-03 14:30 | disposition home or self-care (01) ==
LOC: ER 07:50
PROVIDERS: Physician Assistant
DX: R11.2 Nausea with vomiting, unspecified (principal); R19.7 Diarrhea, unspecified; Z88.0 Allergy status to penicillin; Z88.2 Allergy status to sulfonamides; Z88.8 Allergy status to other drugs, medicaments and biological substances; Z79.899 Other long term (current) drug therapy; Z79.52 Long term (current) use of systemic steroids; I10 Essential (primary) hypertension
CPT/HCPCS: 80053; 83690; 83735; 85025; 96361; 96374; 99284-25; J2405; J7030

== ENCOUNTER 2023-10-06 10:50 | Inpatient (IN) | payer OTHER ==
[~2023-10-06] VITALS: Ht 172.7 cm; Wt 78.9 kg
[~2023-10-06 10:50] MED LIST changes: +LOPE2C PO; -PRAVASTATIN SOD20 MG PO; +PRAVASTATIN SOD40 MG PO
[2023-10-06] MEDS ORDERED: NS 1,000 ML IV ONE (12:00)
[2023-10-06 12:35] LABS: BASOPHILS ABSOLUTE AUTO 0.03 K/mm3 (0.00-0.23); BASOPHILS PERCENT AUTO 0 % (0-2); EOSINOPHILS ABSOLUTE AUTO 0.03 K/mm3 (0.00-0.68); EOSINOPHILS PERCENT AUTO 0 % (0-6); Hematocrit 44.7 % (33.0-51.0); Hemoglobin 14.9 g/dL (11.5-16.0); IMMATURE GRAN ABSOLUTE AUTO 0.02 K/mm3 (0.00-0.10); IMMATURE GRAN PERCENT AUTO 0 % (0-1); LYMPHOCYTES ABSOLUTE AUTO 1.76 K/mm3 (0.84-5.20); LYMPHOCYTES PERCENT AUTO 26 % (21-46); MONOCYTES ABSOLUTE AUTO 0.56 K/mm3 (0.16-1.47); MONOCYTES PERCENT AUTO 8 % (4-13); Mean Corpuscular HGB 27.7 pg (26.0-34.0); Mean Corpuscular HGB Conc 33.3 g/dL (31.5-36.5); Mean Corpuscular Volume 83 fL (80-100); Mean Platelet Volume 9.8 fL (9.1-12.4); NEUTROPHILS ABSOLUTE AUTO 4.45 K/mm3 (1.96-9.15); NEUTROPHILS PERCENT AUTO 65 % (41-73); Platelet Count 330 K/mm3 (150-400); RDW Coefficient Variation 12.5 % (11.7-14.2); RDW Standard Deviation 37.7 fL (35.1-46.3); Red Blood Cell Count 5.38 M/mm3 (3.80-5.20); White Blood Cell Count 6.85 K/mm3 (4.00-11.30)
[2023-10-06 12:55] LABS: Source, Urine Clean Catch
[2023-10-06 12:59] LABS: Appearance, Urine Clear (Clear); Bilirubin, Urine Neg (Neg); Blood, Urine 2+ (Neg); Color, Urine Yellow (P-Yellow); Glucose Qualitative, Urine Neg (Neg); Ketones, Urine 4+ (Neg); Leukocyte Esterase, Urine Neg (Neg); Nitrite, Urine Neg (Neg); Protein, Urine 2+ (Neg); Urobilinogen, Urine NORM (Normal)
[2023-10-06 13:03] LABS: Albumin, Blood 3.7 g/dL (3.4-5.0); Albumin/Globulin Ratio 0.8 (0.8-1.8); Bilirubin, Total 0.6 mg/dL (0.1-1.0); Bun/Creatinine Ratio 10.3 (12.0-20.0); Calcium, Blood 8.8 mg/dL (8.5-10.1); Creatinine, Blood 0.87 mg/dL (0.40-1.00); Globulin, Blood 4.6 g/dL (2.2-4.0); Magnesium, Blood 2.2 mg/dL (1.6-2.4); Potassium, Blood 3.9 mmol/L (3.5-5.5); Thyroid Stimulating Hormone 1.78 uIU/mL (0.360-4.800); Total Protein, Blood 8.3 g/dL (6.4-8.2)
[2023-10-06 13:07] LABS: White Blood Cells, Urine Not Seen /hpf (0-5)
[2023-10-06 13:08] LABS: Bacteria Not Seen /hpf; Squamous Epithelial Cells Not Seen /hpf (Few)
[2023-10-06 13:11] LABS: Influenza A, PCR NEGATIVE (NEGATIVE); Influenza B, PCR NEGATIVE (NEGATIVE); Resp Syncytial Virus, PCR NEGATIVE (NEGATIVE)
[2023-10-06 13:21] LABS: SARS-Cov-2 (COVID-19) PCR, MMC POSITIVE (NEGATIVE)
[2023-10-06] MEDS ORDERED: Furosemide 10 MG / ML 2ML Vial IV ONE (13:35)
[2023-10-06] MEDS ORDERED: FLU VACC QS2023-24(6MOS UP)/PF 60 MCG/0.5 ML SYRINGE IM SCH (15:15)
[2023-10-06] MEDS ORDERED: Ventolin/Proventil INH (17:23)
[2023-10-06] MEDS ORDERED: AMLO10 PO (17:24)
[2023-10-06] MEDS ORDERED: ATORVASTATIN CA80 M1 PO (17:25)
[2023-10-06] MEDS ORDERED: DONEPEZIL HCL5 M2 PO (17:26)
[2023-10-06] MEDS ORDERED: ADVAIR INH (17:27)
[2023-10-06] MEDS ORDERED: Keppra PO (17:29)
[2023-10-06] MEDS ORDERED: EUTHYROX50 MCG PO (17:30)
[2023-10-06] MEDS ORDERED: Mometasone/Formoterol MDI 200/5 mcg 13 GM INH SCH (17:50)
[2023-10-06] MEDS ORDERED: Albuterol HFA200 ACT/6.7 GM INH INH PRN (17:50)
[2023-10-06 17:56] LABS: Anti-Xa UFH, PHA Monitoring <0.10 IU/mL; International Normalized Ratio 1.01; Prothrombin Time Results 10.6 Sec (9.7-11.5)
[2023-10-06] MEDS ORDERED: LevETIRAcetam 500 MG Tab PO SCH ×2 (18:00)
[2023-10-06] MEDS ORDERED: Dose Adjust by Pharmacy XX STA (18:11)
[2023-10-06] MEDS ORDERED: Heparin Sodium,Porcine/0.5 NS 500 ML IV SCH (18:15)
--- NOTE | 2023-10-06 20:11 | NUR ---
ADMIT NOTE PT BROUGHT TO UNIT BY STEFFANY MALDONADO, SLID TO HOSPITAL BED. PT BELONGINGS AT BEDSIDE. REPORT RECEIVED FROM EILEEN JETER RN. OMI IN PLACE. PT ON 2L O2. EDUCATED ON FIRE PREVENTION AND SMOKING POLICY. ORIENTED TO ROOM AND CALL LIGHT.
[2023-10-06 20:24] VITALS: BP 149/66
[2023-10-06] MEDS ORDERED: Donepezil HCl 5 MG Tab PO SCH (21:00)
[2023-10-06] MEDS ORDERED: LamoTRIgine 100 MG Tab PO SCH (21:00)
[2023-10-07 02:48] VITALS: BP 154/69
[2023-10-07 03:49] LABS: BASOPHILS ABSOLUTE AUTO 0.02 K/mm3 (0.00-0.23); BASOPHILS PERCENT AUTO 0 % (0-2); EOSINOPHILS ABSOLUTE AUTO 0.04 K/mm3 (0.00-0.68); EOSINOPHILS PERCENT AUTO 1 % (0-6); Hemoglobin 12.5 g/dL (11.5-16.0); IMMATURE GRAN ABSOLUTE AUTO 0.02 K/mm3 (0.00-0.10); IMMATURE GRAN PERCENT AUTO 0 % (0-1); LYMPHOCYTES ABSOLUTE AUTO 1.72 K/mm3 (0.84-5.20); LYMPHOCYTES PERCENT AUTO 26 % (21-46); MONOCYTES ABSOLUTE AUTO 0.52 K/mm3 (0.16-1.47); MONOCYTES PERCENT AUTO 8 % (4-13); Mean Corpuscular HGB 27.7 pg (26.0-34.0); Mean Corpuscular HGB Conc 32.9 g/dL (31.5-36.5); Mean Corpuscular Volume 84 fL (80-100); Mean Platelet Volume 9.5 fL (9.1-12.4); NEUTROPHILS ABSOLUTE AUTO 4.36 K/mm3 (1.96-9.15); NEUTROPHILS PERCENT AUTO 65 % (41-73); Platelet Count 312 K/mm3 (150-400); RDW Coefficient Variation 12.6 % (11.7-14.2); RDW Standard Deviation 38.2 fL (35.1-46.3); Red Blood Cell Count 4.52 M/mm3 (3.80-5.20); White Blood Cell Count 6.68 K/mm3 (4.00-11.30)
--- NOTE | 2023-10-07 04:12 | NUR ---
SHIFT SUMMARY PT A&O, CONFUSION AND FORGETFULLNESS NOTED. PT IS CURRENTLY NPO. CALLED CONSULT TO DR WYNNE ANSWERING SERVICE. PT IS CURRENTLY ON HEPARIN DRIP AT 15 U/KG/HR, 23.7 ML/HR, WEIGHT 79 KG. PT IS ON 2L O2 VIA NC, WHICH IS HER BASELINE. PUREWICK IN PLACE, PATENT, AND DRAINING. TELEMETRY: SR @ 80. DENIES CHEPT PAIN OR PRESSURE. PT IS POSITIVE FOR COVID. BED KEPT IN LOWEST POSIITON WITH CALL LIGHT WITHIN REACH.
[2023-10-07 04:27] LABS: Albumin/Globulin Ratio 0.8 (0.8-1.8); Bilirubin, Total 0.5 mg/dL (0.1-1.0); Bun/Creatinine Ratio 12.1 (12.0-20.0); Calcium, Blood 8.2 mg/dL (8.5-10.1); Creatinine, Blood 0.91 mg/dL (0.40-1.00); Globulin, Blood 3.8 g/dL (2.2-4.0); Potassium, Blood 3.3 mmol/L (3.5-5.5); Total Protein, Blood 6.8 g/dL (6.4-8.2)
[2023-10-07] MEDS ORDERED: Dose Adjust by Pharmacy XX STA (04:39)
[2023-10-07] MEDS ORDERED: Levothyroxine Sodium 0.05 MG Tab PO SCH ×2 (06:00)
[2023-10-07] MEDS ORDERED: Potassium Chloride 20 MEQ TabCR PO STA (07:55)
[2023-10-07 08:10] VITALS: BP 152/57
[2023-10-07] MEDS ORDERED: Aspirin 81 MG Chew PO SCH (09:00)
[2023-10-07] MEDS ORDERED: Losartan Potassium 25 MG Tab PO SCH ×2 (09:00)
[2023-10-07] MEDS ORDERED: Enoxaparin 40 MG/0.4 ML SYR SC SCH (09:00)
[2023-10-07] MEDS ORDERED: AmLODIPine Besylate 5 MG Tab PO SCH ×2 (09:00)
[2023-10-07] MEDS ORDERED: Atorvastatin 40 MG Tab PO SCH ×2 (09:00)
[2023-10-07] MEDS ORDERED: Metoprolol Succinate 25 MG TABCR PO SCH (09:00)
[2023-10-07 15:42] VITALS: BP 138/51
--- NOTE | 2023-10-07 16:20 | NUR ---
PT AOX3 AND COOPERATIVE OF CARE HAS SOME CONFUSION. PT HAS BEEN RESTING ALL DAY. PT DOES SEEMT TO USE CALL LIGHT APPROPRIATELY. PERWICK IS IN PLACE AND WORKING WELL AT THIS TIME. PT IS DOING WELL ON 1.5L O2. CALL LIGHT IS IN REACH WILL CONTINUE TO MONITOR.
[2023-10-07] MEDS ORDERED: KLOR-CON 1010 ME9 PO (18:08)
[2023-10-07] MEDS ORDERED: LAMICTAL XR200 MG PO (18:10)
[2023-10-07 19:51] VITALS: BP 139/58
[2023-10-08 01:59] LABS: Albumin, Blood 2.8 g/dL (3.4-5.0); Albumin/Globulin Ratio 0.8 (0.8-1.8); Bilirubin, Total 0.5 mg/dL (0.1-1.0); Bun/Creatinine Ratio 15.4 (12.0-20.0); Calcium, Blood 8.3 mg/dL (8.5-10.1); Creatinine, Blood 1.04 mg/dL (0.40-1.00); Globulin, Blood 3.7 g/dL (2.2-4.0); Potassium, Blood 3.9 mmol/L (3.5-5.5); Total Protein, Blood 6.5 g/dL (6.4-8.2)
[2023-10-08 02:10] LABS: BASOPHILS ABSOLUTE AUTO 0.05 K/mm3 (0.00-0.23); BASOPHILS PERCENT AUTO 1 % (0-2); EOSINOPHILS ABSOLUTE AUTO 0.21 K/mm3 (0.00-0.68); EOSINOPHILS PERCENT AUTO 3 % (0-6); Hematocrit 35.3 % (33.0-51.0); Hemoglobin 11.6 g/dL (11.5-16.0); IMMATURE GRAN ABSOLUTE AUTO 0.06 K/mm3 (0.00-0.10); IMMATURE GRAN PERCENT AUTO 1 % (0-1); LYMPHOCYTES ABSOLUTE AUTO 2.27 K/mm3 (0.84-5.20); LYMPHOCYTES PERCENT AUTO 32 % (21-46); MONOCYTES ABSOLUTE AUTO 0.76 K/mm3 (0.16-1.47); MONOCYTES PERCENT AUTO 11 % (4-13); Mean Corpuscular HGB 27.4 pg (26.0-34.0); Mean Corpuscular HGB Conc 32.9 g/dL (31.5-36.5); Mean Corpuscular Volume 84 fL (80-100); Mean Platelet Volume 9.6 fL (9.1-12.4); NEUTROPHILS ABSOLUTE AUTO 3.77 K/mm3 (1.96-9.15); NEUTROPHILS PERCENT AUTO 53 % (41-73); Platelet Count 306 K/mm3 (150-400); RDW Standard Deviation 39.4 fL (35.1-46.3); Red Blood Cell Count 4.23 M/mm3 (3.80-5.20); White Blood Cell Count 7.12 K/mm3 (4.00-11.30)
[2023-10-08] MEDS ORDERED: Clarify Drug Order XX ONE (02:40)
[2023-10-08 03:06] VITALS: BP 133/67
--- NOTE | 2023-10-08 04:45 | NUR ---
BUNK ASSEMBLER SUMMARY PT A&O X 3, SHE DID NOT SHOW CONFUSION THIS NIGHT. PT PLEASANT WHEN AWAKE. SHE DID SLEEP MOST OF THE SHIFT. PT L EYE IS SWOLLED, SCLERA RED AND EYE HAS A YELLOW/THICK DISCHARGE RESEMBLING PINK EYE. PT STATED SHE HAS HAD IT FOR 2 WEEKS AND HER EYE FEELS LIKE SANDPAPER, IRRITATED AND ITCHY. PT HAD A DISCHARGE COMING OUT OF [facility] THROUGH THE NIGHT. NOTE LEFT ON WHITEBOARD FOR PHYSICIAN TO EVALUATE WHEN THEY COME AND I WILL ALSO PASS ON TO DAY SHIFT RN THAT IT NEEDS EVALUATED. PT ALSO REPORTING THAT SHE TAKES OMEPRAZOLE TWICE DIALY. I DID NOT SEE THIS ON HER ACTIVE MED LIST NOR HER HOME MED LIST. NOTE LEFT ON WHITEBOARD FOR PHYSICIAN WELL TO SEE IF TEHY ARE WILLING TO PRESCRIBE. PT DENIED PAIN. TELE SR 70. 2 BÁRBARA COBOS RN
[2023-10-08 08:35] VITALS: BP 138/54
[2023-10-08] MEDS ORDERED: Enoxaparin 40 MG/0.4 ML SYR SC SCH (09:00)
[2023-10-08] MEDS ORDERED: Clopidogrel Bisulfate 75 MG Tab PO SCH (09:00)
[2023-10-08] MEDS ORDERED: PANT40 PO (12:06)
[2023-10-08] MEDS ORDERED: ATOR40TA PO (12:06)
[2023-10-08] MEDS ORDERED: ASPI81CH PO (12:07)
[2023-10-08] MEDS ORDERED: CLOP75 PO (12:07)
[2023-10-08] MEDS ORDERED: AIRDUO RESPICL1 EAC4 INH (12:08)
--- NOTE | 2023-10-08 17:25 | NUR ---
SHIFT SUMMARY PATIENT WITH NO ACUTE EVENTS DURING SHIFT.MEDICATED PER EAR. BED IN LOW POSIITION, CALL LIGHT IN REACH. WILL CONTINUE TO MONITOR.
[2023-10-08 19:23] VITALS: BP 143/64
[2023-10-09 02:39] VITALS: BP 134/44
--- NOTE | 2023-10-09 04:49 | NUR ---
PATIENT IS ALERT AND ORIENTED X3 WITH O2 INHALATION AT 2 LPM/NASAL CANNULA. ON ISO D/T COVID. ON TELE AT SINUS RHYTHM 56. WITH PUREWICK PLACED. LEFT EYE HAS REDNESS AND CRUSTINESS. NO COMPLAINTS MADE. HER PIV LINE ON RIGHT INDEX FINGER IS REMOVED D/T NOT FLUSHING WELL. SLEPT FAIRLY. NEEDS ATTENDED. WILL CONTINUE TO MONITOR.
[2023-10-09 05:32] LABS: BASOPHILS ABSOLUTE AUTO 0.06 K/mm3 (0.00-0.23); BASOPHILS PERCENT AUTO 1 % (0-2); EOSINOPHILS PERCENT AUTO 5 % (0-6); Hematocrit 38.7 % (33.0-51.0); Hemoglobin 12.8 g/dL (11.5-16.0); IMMATURE GRAN ABSOLUTE AUTO 0.06 K/mm3 (0.00-0.10); IMMATURE GRAN PERCENT AUTO 1 % (0-1); LYMPHOCYTES PERCENT AUTO 32 % (21-46); MONOCYTES ABSOLUTE AUTO 0.73 K/mm3 (0.16-1.47); MONOCYTES PERCENT AUTO 11 % (4-13); Mean Corpuscular HGB 27.4 pg (26.0-34.0); Mean Corpuscular HGB Conc 33.1 g/dL (31.5-36.5); Mean Corpuscular Volume 83 fL (80-100); Mean Platelet Volume 9.5 fL (9.1-12.4); NEUTROPHILS ABSOLUTE AUTO 3.34 K/mm3 (1.96-9.15); NEUTROPHILS PERCENT AUTO 51 % (41-73); Platelet Count 331 K/mm3 (150-400); RDW Coefficient Variation 13.2 % (11.7-14.2); RDW Standard Deviation 39.6 fL (35.1-46.3); Red Blood Cell Count 4.68 M/mm3 (3.80-5.20); White Blood Cell Count 6.59 K/mm3 (4.00-11.30)
[2023-10-09 05:57] LABS: Albumin/Globulin Ratio 0.8 (0.8-1.8); Bilirubin, Total 0.6 mg/dL (0.1-1.0); Bun/Creatinine Ratio 18.9 (12.0-20.0); Calcium, Blood 8.7 mg/dL (8.5-10.1); Creatinine, Blood 1.06 mg/dL (0.40-1.00); Potassium, Blood 4.1 mmol/L (3.5-5.5)
[2023-10-09] MEDS ORDERED: Pantoprazole Sodium 40 MG Tab PO SCH (06:00)
[2023-10-09 08:38] VITALS: BP 142/50
--- NOTE | 2023-10-09 08:39 | NUR ---
furniture repair technician states SR 63 bpm with new prolonged QTC OF 5.3. WILL NOTIFY DR. GONZALEZ
[2023-10-09] MEDS ORDERED: Erythromycin 0.5% Opth Oint 3.5 gm LEFTEYE SCH (09:00)
[2023-10-09 15:20] VITALS: BP 119/49
--- NOTE | 2023-10-09 18:34 | NUR ---
PATIENT IS ALERT AND OREITNED ANDD COOPERATIVE WITH CARE. ON 2L O2 VIA NC. C/O BURNING WIT URINATION. WAITING FOR URINE SAMPLE. UP TO CHAIR FOR MEALS. WORKED WITH OT TODAY. WILL CONTINUE TO MONITOR
[2023-10-09 19:41] VITALS: BP 116/50
[2023-10-10 02:46] VITALS: BP 141/51
[2023-10-10 04:39] LABS: BASOPHILS ABSOLUTE AUTO 0.07 K/mm3 (0.00-0.23); BASOPHILS PERCENT AUTO 1 % (0-2); EOSINOPHILS ABSOLUTE AUTO 0.31 K/mm3 (0.00-0.68); EOSINOPHILS PERCENT AUTO 5 % (0-6); Hematocrit 34.5 % (33.0-51.0); Hemoglobin 11.6 g/dL (11.5-16.0); IMMATURE GRAN ABSOLUTE AUTO 0.04 K/mm3 (0.00-0.10); IMMATURE GRAN PERCENT AUTO 1 % (0-1); LYMPHOCYTES ABSOLUTE AUTO 1.86 K/mm3 (0.84-5.20); LYMPHOCYTES PERCENT AUTO 29 % (21-46); MONOCYTES ABSOLUTE AUTO 0.78 K/mm3 (0.16-1.47); MONOCYTES PERCENT AUTO 12 % (4-13); Mean Corpuscular HGB 28.1 pg (26.0-34.0); Mean Corpuscular HGB Conc 33.6 g/dL (31.5-36.5); Mean Corpuscular Volume 84 fL (80-100); NEUTROPHILS ABSOLUTE AUTO 3.36 K/mm3 (1.96-9.15); NEUTROPHILS PERCENT AUTO 52 % (41-73); Platelet Count 326 K/mm3 (150-400); RDW Coefficient Variation 13.2 % (11.7-14.2); RDW Standard Deviation 39.8 fL (35.1-46.3); Red Blood Cell Count 4.13 M/mm3 (3.80-5.20); White Blood Cell Count 6.42 K/mm3 (4.00-11.30)
[2023-10-10 05:00] LABS: Albumin, Blood 2.7 g/dL (3.4-5.0); Albumin/Globulin Ratio 0.7 (0.8-1.8); Bilirubin, Total 0.6 mg/dL (0.1-1.0); Calcium, Blood 8.4 mg/dL (8.5-10.1); Creatinine, Blood 1.05 mg/dL (0.40-1.00); Globulin, Blood 3.9 g/dL (2.2-4.0); Potassium, Blood 4.4 mmol/L (3.5-5.5); Total Protein, Blood 6.6 g/dL (6.4-8.2)
--- NOTE | 2023-10-10 05:51 | NUR ---
PATIENT IS ALERT AND ORIENTED AND ON O2 INHALATION AT 2 LPM/NASAL CANNULA. ON TELE MONITORING. NOTED WITH REDNESS AND CRUSTY LEFT EYE, OINTMENT MEDICATION APPLIED ACCORDINGLY. NOTED REDNESS ON LABIA WHERE THE PUREWICK IS PLACED; REMOVED DUE TO IT; TRYING PATIENT TO USE ATTENDS FOR THE MEANTIME. NO COMPLAINT OF PAIN. CALLS APPROPRIATELY. ENCOURAGED PATIENT TO INCREASE HER FLUID INTAKE. STILL HAVING DRY COUGH. CALL LIGHT WITHIN PATIENT'S REACH. FOR SNF PLACEMENT ONCE CLEARED FROM COVID. WILL CONTINUE TO MONITOR.
[2023-10-10 07:59] VITALS: BP 134/50
[2023-10-10 11:35] VITALS: BP 117/60
[2023-10-10 15:44] VITALS: BP 121/56
--- NOTE | 2023-10-10 17:57 | NUR ---
PATIENT IS ALERT AND ORIENTED AND COOPERATIVE WITH CARE. SHE C/O UPSET STOMACH TODAY STATING THAT SHE ATE ONIONS LAST NIGHT WITH DINNER AND IT MADE HER GASSY. PATIENT GOT UP TO THE BSC AND CHAIR TODAY AND TRANSFERRED BACK TO BED AFTER WORKING WITH OT AND PT. RN ATTEMPTED TO CALL THE PATIENT'S , FALGUNI FOR HER BUT THERE WAS NO ANSWER. ON 2L O2 VIA N WHICH IS BASELINE. ON TELEMETRY, SR AT 67 BP. PATIENT WAS GIVEN A BEDBATH THIS AFTERNOON. PUREWICK IN PLACE. PATIENT ATTEMPTED TO VOID IN THE BSC THIS MORNING BUT WASNT ABLE TO. HER LEFT EYE IS RED AND GOOPY, CLEANED WITH WARM WASH CLOTH AND MEDICATION ADMINISTERED PER EMAR. WILL CONTINUE TO MONITOR
[2023-10-10 19:33] VITALS: BP 178/41
[2023-10-11 01:30] VITALS: BP 120/70
[2023-10-11 03:57] VITALS: BP 124/69
--- NOTE | 2023-10-11 04:10 | NUR ---
PATIENT IS ALERT AND ORIENTED, ON OXYGEN INHALATION AT 2 LPM/NASAL CANNULA. WITH PIV LINE ON LEFT AC PATENT AND INTACT, WITH ONGOING IV FLUIDS INFUSING WELL. ON CONT BIOX. COMPLAINT OF ABDOMINAL AND BACK BACK, MEDICATED ACCORDINGLY, EDUCATED ABOUT THE PAIN MEDICATION. NEEDS ATTENDED. CALL LIGHT WITHIN PATIENT'S REACH. WILL CONTINUE TO MONITOR.
--- NOTE | 2023-10-11 04:35 | NUR ---
PATIENT IS ALERT AND ORIENTED. WITH OXYGEN INHALATION ON. NOTED WITH REDNESS ON HER EYES, MEDICATED ACCORDINGLY. PUREWICK WAS PLACED LAST NIGHT. ON TELE MONITORING. NO COMPLAINT MADE. NEEDS ATTENDED. CALL IGHT WITHIN PATIENT'S REACH. WILL CONTINUE TO MONITOR
[2023-10-11 07:32] VITALS: BP 138/47
--- NOTE | 2023-10-11 09:00 | NUR ---
pt working with pt, up to bsc, two person to tx, a/ox3, cooperative with care, follows commands well, denies pain at this time, lungs are dim t/o, resp even and unlabored, on 2 liters 02 at this time, no cough noted at this time, hrr, tele in place running sr in the 60's, no edema noted, ppp faint, cap refill<3 sec, vs stable, afebrile, piv to r wrist, site is clear and patent, btx4, abd flat soft nontender, voids without diff, skin has bruising and scab to back of head, maew, stiff, reji, call light in reach.
[2023-10-11 12:37] LABS: Source, Urine Clean Catch
[2023-10-11 12:40] LABS: Appearance, Urine Clear (Clear); Bilirubin, Urine Neg (Neg); Blood, Urine 1+ (Neg); Glucose Qualitative, Urine Neg (Neg); Ketones, Urine Neg (Neg); Leukocyte Esterase, Urine 2+ (Neg); Nitrite, Urine Neg (Neg); Protein, Urine Neg (Neg); Specific Gravity, Urine 1.005 (1.003-1.022); Urobilinogen, Urine NORM (Normal)
[2023-10-11 12:46] LABS: Color, Urine Pale Yellow (P-Yellow)
[2023-10-11 12:50] LABS: Bacteria Many /hpf; Transitional Epithelial Cells Few /hpf (0-Rare)
[2023-10-11 12:52] LABS: Amorphous Light (0-Heavy); Red Blood Cells, Urine 0-2 /hpf (0-2); Squamous Epithelial Cells Few /hpf (Few)
[2023-10-11 15:23] VITALS: BP 110/42
--- NOTE | 2023-10-11 18:23 | NUR ---
pt up to chair for meals, is scared of falling, left eye continues to be pink, she reports it feels gritty, differential specialist was getting her up to chair for dinner this evening and she started to sit down prior to getting all the way to the chair so she sat her easily down, charge nurse in room with her, no further changes this shift, call light in reach.
[2023-10-11 19:43] VITALS: BP 87/60
[2023-10-12 01:30] VITALS: BP 120/70
[2023-10-12 04:42] VITALS: BP 149/54
[2023-10-12 08:01] VITALS: BP 139/51
--- NOTE | 2023-10-12 09:56 | NUR ---
PHYSICIAN CONTACT DR CARTER NOTIFIED THAT PT IS COMPLAINING OF BURNING WITH URINATION. ORDER TO CULTURE URINE PLACED AND LAB NOTIFIED. NO IV ACCESS ORDER ALSO OBTAINED PT HAS NO IV. NO NEW ORDERS AT THIS TIME.
--- NOTE | 2023-10-12 11:59 | NUR ---
PHYSICIAN CONTACT DR. CARTER NOTIFIED THAT THE PATIENT IS VERY LETHARGIC. UNABLE TO HELP ASSIST WITH ROLLING AND THEREFORE WE USED A LIFT TO GET THE PATIENT OUT OF BED. PT REFUSING MEALS AND NOT TAKING IN MUCH FLUID INTAKE. IV TO BE PLACED BACK IN. DR. CARTER STATES HE WILL BE HERE IN 10-15 MINUTES TO EVALUATE THE PATIENT.
[2023-10-12 12:20] VITALS: BP 150/93
[2023-10-12 12:35] LABS: BASOPHILS ABSOLUTE AUTO 0.03 K/mm3 (0.00-0.23); BASOPHILS PERCENT AUTO 1 % (0-2); EOSINOPHILS ABSOLUTE AUTO 0.08 K/mm3 (0.00-0.68); EOSINOPHILS PERCENT AUTO 1 % (0-6); Hematocrit 37.3 % (33.0-51.0); Hemoglobin 12.6 g/dL (11.5-16.0); IMMATURE GRAN ABSOLUTE AUTO 0.03 K/mm3 (0.00-0.10); IMMATURE GRAN PERCENT AUTO 1 % (0-1); LYMPHOCYTES ABSOLUTE AUTO 1.74 K/mm3 (0.84-5.20); LYMPHOCYTES PERCENT AUTO 27 % (21-46); MONOCYTES ABSOLUTE AUTO 0.81 K/mm3 (0.16-1.47); MONOCYTES PERCENT AUTO 13 % (4-13); Mean Corpuscular HGB 27.8 pg (26.0-34.0); Mean Corpuscular HGB Conc 33.8 g/dL (31.5-36.5); Mean Corpuscular Volume 82 fL (80-100); Mean Platelet Volume 9.8 fL (9.1-12.4); NEUTROPHILS ABSOLUTE AUTO 3.77 K/mm3 (1.96-9.15); NEUTROPHILS PERCENT AUTO 58 % (41-73); Platelet Count 357 K/mm3 (150-400); RDW Coefficient Variation 13.1 % (11.7-14.2); RDW Standard Deviation 38.9 fL (35.1-46.3); Red Blood Cell Count 4.53 M/mm3 (3.80-5.20); White Blood Cell Count 6.46 K/mm3 (4.00-11.30)
[2023-10-12 13:04] LABS: Albumin/Globulin Ratio 0.7 (0.8-1.8); Bilirubin, Total 0.6 mg/dL (0.1-1.0); Bun/Creatinine Ratio 13.1 (12.0-20.0); Calcium, Blood 8.4 mg/dL (8.5-10.1); Creatinine, Blood 0.84 mg/dL (0.40-1.00); Globulin, Blood 4.1 g/dL (2.2-4.0); Potassium, Blood 3.9 mmol/L (3.5-5.5); Thyroid Stimulating Hormone 2.11 uIU/mL (0.360-4.800); Total Protein, Blood 7.1 g/dL (6.4-8.2)
[2023-10-12] MEDS ORDERED: CefTRIAXone Sodium 1,000 MG in NS 50 ML IV SCH (13:30)
[2023-10-12] MEDS ORDERED: NS 1,000 ML IV SCH (13:40)
[2023-10-12] MEDS ORDERED: CefTRIAXone 1000 MG Vial ONE (13:48)
[2023-10-12 15:59] VITALS: BP 132/62
--- NOTE | 2023-10-12 18:17 | NUR ---
SHIFT SUMMARY PT LETHARGIC MOST THE MORNING AND DAY. DR. CARTER WAS NOTIFIED OF THIS CONCERN FOR LETHERGY AND PT COMPLAINING OF BURNING WHEN SHE URINATES. IV ACCESS LOST OVERNIGHT SO PG WAS PLACED TODAY AFTER SEVERAL FAILED PERIPHERAL ATTEMPTS. PT SEEMS TO BE MORE ALERT THIS AFTERNOON. STATING SHE IS HUNGRY FROM SOME CHOLOCLATE PUDDING. IV FLUIDS X1 BAG RUNNING. IV ABX ALSO STARTED TODAY. URINE BEING CULTURED. PT PLEASANT & COOPERATIVE T/O SHIFT. MECH LIFT USED TO GET UP OOB TODAY SHE WAS SO LETHARGIC AND WEAK. NO OTHER ACUTE CHANGES IN ASSESSMENT AT THIS TIME. VS REVIEWED. CALL LIGHT IN REACH. DENIES OTHER NEEDS AT THIS TIME.
[2023-10-12 19:44] VITALS: BP 132/49
[2023-10-12] MEDS ORDERED: Acetaminophen 500 MG Tab PO PRN (22:35)
[2023-10-13 03:23] VITALS: BP 133/58
[2023-10-13 07:37] VITALS: BP 123/49
--- NOTE | 2023-10-13 09:27 | NUR ---
SHIFT SUMMARY PT IS A&O TO SELF, PERSON, AND SOMETIMES PLACE. VSS ON 3L NC. NSR IN THE 70'S WITH 1ST DEGREE AVB, VIA TELEMETRY. PT FREQUENTLY C/O PAIN IN BILAT KNEES, MORE ON THE RIGHT. CALLED MD TO GET SOMETHING FOR PAIN, TYLENOL GIVEN WITH MINIMAL EFFECT. TOLERATING A HEART HEALTHY DIET. ABLE TO FEED SELF. TAKES PILLS WHOLE, 3 AT A TIME WITH WATER. NOOB THIS SHIFT, REPOSITIONED TOLERATED. VOIDING LARGE AMOUNTS OF YELLOW URINE VIA WICKING SYSTEM, NO BM THIS SHIFT. BED IN LOWEST POSITION, CALL LIGHT WITHIN REACH. BED ALARM SET FOR PT'S SAFETY. SEIZURE PRECAUTIONS MAINTAINED. PT REMAINS IN ENHANCED PRECAUTIONS FOR COVID +.
[2023-10-13 15:50] VITALS: BP 116/49
--- NOTE | 2023-10-13 17:32 | NUR ---
SHIFT SUMMARY Pt remains A&O to self and place this shift. VSS. Denies pain. Resp even nonlabored on 3L NC. 2L NC baseline. Purewick removed. Able to void per BSC with 1-2 person ast transfer. No acute distress noted. Pain and safety maintained. Will continue to monitor.
[2023-10-13 19:18] VITALS: BP 142/51
[2023-10-14 03:24] VITALS: BP 124/50
[2023-10-14 06:23] LABS: BASOPHILS ABSOLUTE AUTO 0.07 K/mm3 (0.00-0.23); BASOPHILS PERCENT AUTO 1 % (0-2); EOSINOPHILS ABSOLUTE AUTO 0.37 K/mm3 (0.00-0.68); EOSINOPHILS PERCENT AUTO 6 % (0-6); Hematocrit 32.9 % (33.0-51.0); Hemoglobin 11.1 g/dL (11.5-16.0); IMMATURE GRAN ABSOLUTE AUTO 0.03 K/mm3 (0.00-0.10); IMMATURE GRAN PERCENT AUTO 1 % (0-1); LYMPHOCYTES ABSOLUTE AUTO 2.32 K/mm3 (0.84-5.20); LYMPHOCYTES PERCENT AUTO 36 % (21-46); MONOCYTES ABSOLUTE AUTO 0.83 K/mm3 (0.16-1.47); MONOCYTES PERCENT AUTO 13 % (4-13); Mean Corpuscular HGB 27.8 pg (26.0-34.0); Mean Corpuscular HGB Conc 33.7 g/dL (31.5-36.5); Mean Corpuscular Volume 82 fL (80-100); Mean Platelet Volume 10.2 fL (9.1-12.4); NEUTROPHILS ABSOLUTE AUTO 2.84 K/mm3 (1.96-9.15); NEUTROPHILS PERCENT AUTO 44 % (41-73); Platelet Count 358 K/mm3 (150-400); RDW Coefficient Variation 13.3 % (11.7-14.2); RDW Standard Deviation 39.4 fL (35.1-46.3); White Blood Cell Count 6.46 K/mm3 (4.00-11.30)
[2023-10-14 07:07] LABS: Albumin, Blood 2.8 g/dL (3.4-5.0); Albumin/Globulin Ratio 0.8 (0.8-1.8); Bilirubin, Total 0.4 mg/dL (0.1-1.0); Calcium, Blood 8.1 mg/dL (8.5-10.1); Creatinine, Blood 1.11 mg/dL (0.40-1.00); Globulin, Blood 3.6 g/dL (2.2-4.0); Potassium, Blood 3.6 mmol/L (3.5-5.5); Total Protein, Blood 6.4 g/dL (6.4-8.2)
[2023-10-14 07:31] VITALS: BP 133/37
--- NOTE | 2023-10-14 08:55 | NUR ---
SHIFT SUMMARY PT IS A&OX3, OFF ON DATE. VSS ON 2L NC. C/O PAIN IN HER RIGHT KNEE, MEDICATED PER EMAR. NO ACUTE CHANGES THIS SHIFT. USING BEDPAN TO VOID. SEIZURE PRECAUTIONS MAINTAINED. BED IN LOWEST POSITION, CALL LIGHT WITHIN REACH. BED ALARM SET FOR PT'S SAFETY. ENHANCED PRECAUTIONS MAINTAINED FOR COVID.
[2023-10-14 15:23] VITALS: BP 131/52
[2023-10-14 19:29] VITALS: BP 149/61
--- NOTE | 2023-10-14 19:46 | NUR ---
PT IS A/OX3,FORGETFULL AT TIMES, PLEASANT AND COOPERATIVE. PT IS UP WITH 1-2 PERSON ASSIST TO THE CHAIR AND THE BSC. PT GETS ANXIOUS WHEN TRANSFERING DUE TO FEAR OF FALLING. PT APPEARS TO BE BREATHING EASILY AT REST ON 2L/MIN O2 VIA NC, HER BASLINE, PT C/O PAIN IN THE RIGHT KNEE. REPOSITIONED FOR COMFORT. PT REPORTED THAT PAIN MEDICATION INCLUDING TYLENOL DRIED HER OUT. PT REQUESTED A PUR WICK SUCTION DEVICE PLACED. PT IS VOIDING YELLOW URINE. CALL LIGHT IN REACH. REPORT GIVEN TO NIGHT RN
[2023-10-15 02:43] VITALS: BP 140/66
[2023-10-15 06:01] LABS: BASOPHILS ABSOLUTE AUTO 0.08 K/mm3 (0.00-0.23); BASOPHILS PERCENT AUTO 1 % (0-2); EOSINOPHILS PERCENT AUTO 4 % (0-6); Hematocrit 33.7 % (33.0-51.0); IMMATURE GRAN ABSOLUTE AUTO 0.03 K/mm3 (0.00-0.10); IMMATURE GRAN PERCENT AUTO 0 % (0-1); LYMPHOCYTES ABSOLUTE AUTO 2.19 K/mm3 (0.84-5.20); LYMPHOCYTES PERCENT AUTO 32 % (21-46); MONOCYTES ABSOLUTE AUTO 0.81 K/mm3 (0.16-1.47); MONOCYTES PERCENT AUTO 12 % (4-13); Mean Corpuscular HGB 27.6 pg (26.0-34.0); Mean Corpuscular HGB Conc 32.6 g/dL (31.5-36.5); Mean Corpuscular Volume 85 fL (80-100); Mean Platelet Volume 9.9 fL (9.1-12.4); NEUTROPHILS ABSOLUTE AUTO 3.51 K/mm3 (1.96-9.15); NEUTROPHILS PERCENT AUTO 51 % (41-73); Platelet Count 348 K/mm3 (150-400); RDW Coefficient Variation 13.4 % (11.7-14.2); RDW Standard Deviation 40.9 fL (35.1-46.3); Red Blood Cell Count 3.98 M/mm3 (3.80-5.20); White Blood Cell Count 6.92 K/mm3 (4.00-11.30)
[2023-10-15 07:18] LABS: Albumin, Blood 2.8 g/dL (3.4-5.0); Albumin/Globulin Ratio 0.7 (0.8-1.8); Bilirubin, Total 0.5 mg/dL (0.1-1.0); Bun/Creatinine Ratio 20.5 (12.0-20.0); Calcium, Blood 8.6 mg/dL (8.5-10.1); Creatinine, Blood 0.93 mg/dL (0.40-1.00); Globulin, Blood 3.8 g/dL (2.2-4.0); Potassium, Blood 4.4 mmol/L (3.5-5.5); Total Protein, Blood 6.6 g/dL (6.4-8.2)
[2023-10-15 07:29] VITALS: BP 147/65
--- NOTE | 2023-10-15 08:24 | NUR ---
SHIFT SUMMARY PT IS A&OX3, PLEASANTLY CONFUSED. VSS ON 2L NC. SB @ 57 PER TELEMETRY. NO ACUTE CHANGES THIS SHIFT. ADEQUATE AMOUNTS OF LIGHT, CLEAR YELLOW URINE VIA WICKING SYSTEM. NO BM THIS SHIFT. SEIZURE PRECAUTIONS MAINTAINED. BED IN LOWEST POSITION, CALL LIGHT WITHIN REACH. BED ALARM SET FOR PT'S SAFETY. ENHANCED PRECAUTIONS MAINTAINED FOR COVID. INFECTION CONTROL CALLED THIS RN THIS MORNING TO DC PRECAUTIONS.
[2023-10-15] MEDS ORDERED: Nitrofurantoin/Nitrofuran Mac 100 MG Cap PO SCH (11:00)
--- NOTE | 2023-10-15 16:00 | NUR ---
SHIFT SUMMARY AND DISCHARGE PATIENT ALERT AND INTERACTIVE BUT FORGETFUL. PATIENT UP TO CHAIR WITH 1 PERSON ASSIST WITH WALKER. PATIENT HAS MULTIPLE BRUISES FROM FALLS AT HOME AND BRUISES ON ABD POSSIBLY FROM LOVENOX INJECTIONS. REPORT CALLED TO [facility]. PATIENT TRANSPORTED VIA WHEELCHAIR. BELONGINGS SENT WITH PATIENT. NO IVS PRESENT.
== END 2023-10-15 16:34 | DRG 178 ==
LOC: ER 10:50 → MEDS 10:51 → PCU 10:51 → ER 10:51 → MEDS 19:59 → ENPENDDIS 10-08 11:56 → MEDS 10-08 23:18
PROVIDERS: Emergency Medicine; Family Medicine; Internal Medicine; ADMIT Internal Medicine
DX: U07.1 COVID-19 (principal); I13.0 Hypertensive heart and chronic kidney disease with heart failure and stage 1 through stage 4 chronic kidney disease, or unspecified chronic kidney disease; I50.32 Chronic diastolic (congestive) heart failure; N39.0 Urinary tract infection, site not specified; J96.11 Chronic respiratory failure with hypoxia; I24.9 Acute ischemic heart disease, unspecified; Z66 Do not resuscitate; N18.30 Chronic kidney disease, stage 3 unspecified; J44.9 Chronic obstructive pulmonary disease, unspecified; G40.909 Epilepsy, unspecified, not intractable, without status epilepticus; E78.5 Hyperlipidemia, unspecified; E03.9 Hypothyroidism, unspecified; R94.31 Abnormal electrocardiogram [ECG] [EKG]; G30.9 Alzheimer's disease, unspecified; F02.80 Dementia in other diseases classified elsewhere, unspecified severity, without behavioral disturbance, psychotic disturbance, mood disturbance, and anxiety; B96.20 Unspecified Escherichia coli [E. coli] as the cause of diseases classified elsewhere; H10.9 Unspecified conjunctivitis; R54 Age-related physical debility; R30.0 Dysuria; Z88.2 Allergy status to sulfonamides; Z88.0 Allergy status to penicillin; Z88.8 Allergy status to other drugs, medicaments and biological substances; Z98.890 Other specified postprocedural states; Z99.81 Dependence on supplemental oxygen; Z79.82 Long term (current) use of aspirin; Z79.890 Hormone replacement therapy; Z79.899 Other long term (current) drug therapy; E86.0 Dehydration; Z90.49 Acquired absence of other specified parts of digestive tract; Z90.89 Acquired absence of other organs; Z87.891 Personal history of nicotine dependence
CPT/HCPCS: 0241U; 36415; 51701; 70450; 71045; 73562-RT; 80053; 81001; 83735; 83880; 84443; 84484; 85025; 85520; 85610; 85730; 87077; 87086; 87186; 87426; 87811; 93005; 93010; 93306; 94640; 94664; 94760; 96360; 96361; 96365; 96366; 97110; 97162; 97165; 97530; 97535; 99285-25; A9270; G0378; J0696; J1644; J1650; J7030

== ENCOUNTER 2023-11-20 02:55 | Inpatient (IN) | payer OTHER ==
[~2023-11-20] VITALS: Ht 152.4 cm; Wt 76.7 kg
[~2023-11-20 02:55] MED LIST changes: +ADVAIR INH; +AIRDUO RESPICL1 EAC4 INH; +AMLO10 PO; +ASPI81CH PO; +ATOR40TA PO; +ATORVASTATIN CA80 M1 PO; +BENZ100A PO; +CLOP75 PO; +DONEPEZIL HCL5 M2 PO; +EUTHYROX50 MCG PO; +KLOR-CON 1010 ME9 PO; +Keppra PO; +LAMICTAL XR200 MG PO; +PANT40 PO; +Ventolin/Proventil INH
[2023-11-20 07:15] VITALS: BP 94/70
[2023-11-20] MEDS ORDERED: Potassium Chloride 10 Meq Tablet SA PO SCH (09:35)
[2023-11-20] MEDS ORDERED: NS 500 ML IV ONE (09:35)
[2023-11-20] MEDS ORDERED: Ipratropium/Albuterol SulF 2.5-0.5MG/3 ML Amp INH SCH (09:40)
[2023-11-20] MEDS ORDERED: Lactobacil 2-S.Thermo-Bifido 1 1 Cap PO SCH (09:50)
[2023-11-20] MEDS ORDERED: Losartan Potassium 25 MG Tab PO SCH (09:55)
[2023-11-20] MEDS ORDERED: Azithromycin 500 MG in NS 250 ML IV SCH (09:55)
[2023-11-20] MEDS ORDERED: Enoxaparin 40 MG/0.4 ML SYR SC SCH (09:55)
[2023-11-20] MEDS ORDERED: NS 1,000 ML IV SCH (10:00)
[2023-11-20] MEDS ORDERED: Acetaminophen 325 MG TABLET PO PRN (10:00)
[2023-11-20] MEDS ORDERED: Mometasone/Formoterol MDI 100/5 mcg 13 GM INH SCH (10:25)
[2023-11-20] MEDS ORDERED: Cefepime HCl 2,000 MG in NS 100 ML IV SCH (10:30)
--- NOTE | 2023-11-20 10:30 | NUR ---
am note this rn assumed care from александр wang at 0700. vital signs stable. on bipap 18/8 with a 6l bleed in. respiratory in around 0900 and titrated to a 4l bleed in on bipap, and when having breaks from bipap on 2l nc with spo2 >90%. patient is alert and oriented x3. patient is forgetful at times, and needs reminding. patient calls appropriately, but will call for the same thing after staff just being in the room. denies chest pain/pressure or pain. patient dose have shortness of breath with activity. patient has excoriation under breasts bilaterally. patient has scattered bruising throughout that patient states is from falls at home. see admit shift assessment for further detials. admit is complete to the best abilities with patient being a poor historian. when doing the home safety evaluation patient stated " i do not feel safe returning home because i fall and my cant always help me so i lay there". case management is going to work on fidning resources. patient states she has caregivers, but only one "anca" is good. informed case managment of this. plan of care is up to date at this time.
[2023-11-20 11:10] VITALS: BP 146/98
[2023-11-20 12:22] LABS: Bun/Creatinine Ratio 14.3 (12.0-20.0); Calcium, Blood 8.2 mg/dL (8.5-10.1); Creatinine, Blood 0.84 mg/dL (0.40-1.00); Potassium, Blood 3.3 mmol/L (3.5-5.5)
[2023-11-20 14:52] LABS: Influenza A, PCR Negative (NEGATIVE); Influenza B, PCR Negative (NEGATIVE); Resp Syncytial Virus, PCR Negative (NEGATIVE); SARS-Cov-2 (COVID-19) PCR, MMC Negative (NEGATIVE)
[2023-11-20 15:02] LABS: Calcium, Ionized (POC) 1.06 mmol/L (1.10-1.46); Chloride (POC) 104 mmol/L (98-108); Glucose (ISTAT POC) 206 mg/dL (70-99); Hemoglobin (POC) 13.6 g/dL (12.0-16.0); Potassium (POC) 4.1 mmol/L (3.5-5.5); Sodium (POC) 140 mmol/L (135-148); Total CO2 (POC) 25 mmol/L (21-32)
[2023-11-20 15:13] LABS: Hematocrit 33.5 % (33.0-51.0); Hemoglobin 10.9 g/dL (11.5-16.0); Mean Corpuscular HGB 27.9 pg (26.0-34.0); Mean Corpuscular HGB Conc 32.5 g/dL (31.5-36.5); Mean Corpuscular Volume 86 fL (80-100); Mean Platelet Volume 9.5 fL (9.1-12.4); Platelet Count 402 K/mm3 (150-400); RDW Coefficient Variation 13.9 % (11.7-14.2); RDW Standard Deviation 43.3 fL (35.1-46.3); Red Blood Cell Count 3.91 M/mm3 (3.80-5.20); White Blood Cell Count 17.03 K/mm3 (4.00-11.30)
[2023-11-20 15:14] LABS: BASOPHILS ABSOLUTE AUTO 0.04 K/mm3 (0.00-0.23); BASOPHILS PERCENT AUTO 0 % (0-2); EOSINOPHILS ABSOLUTE AUTO 0.04 K/mm3 (0.00-0.68); EOSINOPHILS PERCENT AUTO 0 % (0-6); IMMATURE GRAN ABSOLUTE AUTO 0.08 K/mm3 (0.00-0.10); IMMATURE GRAN PERCENT AUTO 1 % (0-1); LYMPHOCYTES ABSOLUTE AUTO 0.35 K/mm3 (0.84-5.20); LYMPHOCYTES PERCENT AUTO 2 % (21-46); MONOCYTES ABSOLUTE AUTO 0.98 K/mm3 (0.16-1.47); MONOCYTES PERCENT AUTO 6 % (4-13); NEUTROPHILS ABSOLUTE AUTO 15.54 K/mm3 (1.96-9.15); NEUTROPHILS PERCENT AUTO 91 % (41-73)
[2023-11-20 15:15] LABS: BAND PERCENT MAN 1 % (0-8); BASOPHILS PERCENT MAN 0 % (0-2); EOSINOPHILS PERCENT MAN 0 % (0-6); MONOCYTES ABSOLUTE MAN 0.34 K/mm3 (0.16-1.47); MONOCYTES PERCENT MAN 2 % (4-13); NEUTROPHILS ABSOLUTE MAN 16.68 K/mm3 (1.96-9.15); SEG NEUTROPHILS PERCENT MAN 97 % (41-73)
[2023-11-20 15:16] LABS: TOTAL CELLS COUNTED 100
[2023-11-20 15:30] LABS: Albumin/Globulin Ratio 0.8 (0.8-1.8); Bun/Creatinine Ratio 11.9 (12.0-20.0); Calcium, Blood 8.6 mg/dL (8.5-10.1); Creatinine, Blood 0.92 mg/dL (0.40-1.00); Magnesium, Blood 2.7 mg/dL (1.6-2.4); Potassium, Blood 3.1 mmol/L (3.5-5.5)
[2023-11-20 15:33] LABS: Bilirubin, Total 0.6 mg/dL (0.1-1.0)
[2023-11-20 15:42] LABS: PCO2 Arterial 83.9 mmHg (35-45); PO2 Arterial 117 mmHg (80-100); pH Blood Arterial 7.08 (7.35-7.45)
[2023-11-20 15:49] LABS: PCO2 Arterial 52.9 mmHg (35-45); PO2 Arterial 219 mmHg (80-100); pH Blood Arterial 7.39 (7.35-7.45)
[2023-11-20 16:13] VITALS: BP 155/63
--- NOTE | 2023-11-20 18:04 | NUR ---
shift summary patient is more alert this evening and able to hold a conversation. patient vitals remain stable. patient neuro remains a/ox3. patient has been on and off the bipap throughout the day. plan of care remains up to date.
[2023-11-20 20:14] VITALS: BP 136/56
[2023-11-20] MEDS ORDERED: LamoTRIgine 100 MG Tab PO SCH (21:00)
[2023-11-20] MEDS ORDERED: LevETIRAcetam 500 MG Tab PO SCH (21:00)
[2023-11-20] MEDS ORDERED: Miconazole Nitrate 2% 85 GM PWD TOP SCH (21:00)
[2023-11-20] MEDS ORDERED: Donepezil HCl 5 MG Tab PO SCH (21:00)
[2023-11-20 22:31] LABS: Source, Urine Clean Catch
[2023-11-20 23:26] VITALS: BP 136/60
[2023-11-20 23:31] LABS: Bilirubin, Urine Neg (Neg); Blood, Urine 4+ (Neg); Glucose Qualitative, Urine Neg (Neg); Ketones, Urine 1+ (Neg); Leukocyte Esterase, Urine 3+ (Neg); Nitrite, Urine Pos (Neg); Protein, Urine 3+ (Neg); Specific Gravity, Urine 1.015 (1.003-1.022); Urobilinogen, Urine NORM (Normal)
[2023-11-20 23:39] LABS: Appearance, Urine Hazy (Clear); Color, Urine Yellow (P-Yellow)
[2023-11-20 23:41] LABS: Bacteria Mod /hpf; Red Blood Cells, Urine 0-2 /hpf (0-2); Squamous Epithelial Cells Few /hpf (Few); White Blood Cells, Urine TNTC /hpf (0-5)
[2023-11-21 03:14] VITALS: BP 135/52
--- NOTE | 2023-11-21 04:17 | NUR ---
SHIFT SUMMARY PT A&O X3-4. ABLE TO MAKE NEEDS KNOWN. CALLING APPROPRIATELY. OCCASIONALLY FORGETFUL. BP STABLE. SR/ST WITH PVC'S, HR 90-100'S. AFEBRILE. ON 4L VIA NC WHILE AWAKE. BIPAP WITH 4-6L BLEED IN TO MAINTAIN SPO2. PT NEEDING MODERATE ASSISTANCE IN BED TO BE REPOSITIONED, REPOSITIONING Q2HRS. PUREWICK IN PLACE. BED IN LOWEST POSITION AND CALL LIGHT WITHIN REACH. THIS RN WILL REPORT TO ONCOMING DAYSHIFT RN.
[2023-11-21] MEDS ORDERED: Levothyroxine Sodium 0.05 MG Tab PO SCH (06:00)
[2023-11-21] MEDS ORDERED: Pantoprazole Sodium 40 MG Tab PO SCH (06:00)
[2023-11-21 07:06] LABS: Potassium, Blood 4.1 mmol/L (3.5-5.5)
[2023-11-21 07:07] LABS: Albumin, Blood 3.3 g/dL (3.4-5.0); Albumin/Globulin Ratio 0.7 (0.8-1.8); Bun/Creatinine Ratio 10.7 (12.0-20.0); Calcium, Blood 8.5 mg/dL (8.5-10.1); Creatinine, Blood 0.93 mg/dL (0.40-1.00); Globulin, Blood 4.6 g/dL (2.2-4.0); Total Protein, Blood 7.9 g/dL (6.4-8.2)
[2023-11-21 07:08] LABS: Bilirubin, Total 0.7 mg/dL (0.1-1.0)
[2023-11-21 07:13] VITALS: BP 149/77
[2023-11-21 07:22] LABS: BASOPHILS ABSOLUTE AUTO 0.11 K/mm3 (0.00-0.23); BASOPHILS PERCENT AUTO 1 % (0-2); EOSINOPHILS ABSOLUTE AUTO 0.14 K/mm3 (0.00-0.68); EOSINOPHILS PERCENT AUTO 1 % (0-6); Hematocrit 38.6 % (33.0-51.0); Hemoglobin 12.1 g/dL (11.5-16.0); IMMATURE GRAN PERCENT AUTO 1 % (0-1); LYMPHOCYTES ABSOLUTE AUTO 2.99 K/mm3 (0.84-5.20); LYMPHOCYTES PERCENT AUTO 19 % (21-46); MONOCYTES ABSOLUTE AUTO 0.97 K/mm3 (0.16-1.47); MONOCYTES PERCENT AUTO 6 % (4-13); Mean Corpuscular HGB 27.8 pg (26.0-34.0); Mean Corpuscular HGB Conc 31.3 g/dL (31.5-36.5); Mean Corpuscular Volume 89 fL (80-100); Mean Platelet Volume 9.4 fL (9.1-12.4); NEUTROPHILS ABSOLUTE AUTO 11.54 K/mm3 (1.96-9.15); NEUTROPHILS PERCENT AUTO 73 % (41-73); Platelet Count 505 K/mm3 (150-400); RDW Standard Deviation 45.5 fL (35.1-46.3); Red Blood Cell Count 4.36 M/mm3 (3.80-5.20); White Blood Cell Count 15.85 K/mm3 (4.00-11.30)
[2023-11-21 07:23] LABS: International Normalized Ratio 1.08; Prothrombin Time Results 11.3 Sec (9.7-11.5)
[2023-11-21 07:24] LABS: D-Dimer, Quantitative 2.39 mg/L FEU (0.00-0.52)
[2023-11-21] MEDS ORDERED: Clopidogrel Bisulfate 75 MG Tab PO SCH (09:00)
[2023-11-21] MEDS ORDERED: Aspirin 81 MG Chew PO SCH (09:00)
[2023-11-21] MEDS ORDERED: Atorvastatin 40 MG Tab PO SCH (09:00)
[2023-11-21] MEDS ORDERED: Metoprolol Succinate 25 MG TABCR PO SCH (09:00)
[2023-11-21] MEDS ORDERED: MethylPREDNISolone Sod Succ 125 MG Vial IV SCH (09:00)
--- NOTE | 2023-11-21 10:02 | NUR ---
AM NOTE this rn assumed care at 0700. vital signs stable. spo2 >90% on 4l nc or bipap 18/8 with 4l bleed in. patient is alert and oriented x3. intermittent confusion and as to why she is here, copd vs dehydration. this rn informs her for copd exacerbation. denies chest pain/pressure, pain or shortness of breath. patient uses call light appropriately. patient worked with speech therapy this morning. plan of care is up to date.
[2023-11-21 11:10] VITALS: BP 171/84
[2023-11-21] MEDS ORDERED: LORazepam 2 MG/ML 1ML Injection IV PRN (11:45)
[2023-11-21 12:13] VITALS: BP 146/124
[2023-11-21] MEDS ORDERED: Benzonatate 100 MG Cap PO SCH (14:50)
[2023-11-21 15:03] VITALS: BP 146/71
--- NOTE | 2023-11-21 17:35 | NUR ---
SHIFT SUMMARY patient neuro remains unchanged. vital signs stable. tele sr/sinus tach 90-100s. patient had one epsiode of anxiety today and medicated per emar. no acute changes otherwise. plan of care remains up to date.
[2023-11-21 20:53] VITALS: BP 164/81
[2023-11-22] VITALS (7 sets, daily range): BP systolic 111–199; BP diastolic 52–145
--- NOTE | 2023-11-22 03:25 | NUR ---
SHIFT SUMMARY PT HAS RESTED T/O THE NIGHT, DOES NOT REPORT PAIN. VITALS ARE STABLE. SATS WNL ON 4L O2. WEARS BIPAP AT NIGHT. NEB TREATMENTS PER RT. PT FORGETFUL, BUT PLESANT AND COOPERATIVE WITH CARE. NO ACUTE CHANGES OVERNIGHT. BED IN LOWEST POSITION, CALL LIGHT WITHIN REACH.
[2023-11-22 04:57] LABS: BASOPHILS ABSOLUTE AUTO 0.01 K/mm3 (0.00-0.23); BASOPHILS PERCENT AUTO 0 % (0-2); EOSINOPHILS PERCENT AUTO 0 % (0-6); Hematocrit 29.4 % (33.0-51.0); Hemoglobin 9.2 g/dL (11.5-16.0); IMMATURE GRAN ABSOLUTE AUTO 0.05 K/mm3 (0.00-0.10); IMMATURE GRAN PERCENT AUTO 1 % (0-1); LYMPHOCYTES ABSOLUTE AUTO 0.97 K/mm3 (0.84-5.20); LYMPHOCYTES PERCENT AUTO 10 % (21-46); MONOCYTES ABSOLUTE AUTO 0.76 K/mm3 (0.16-1.47); MONOCYTES PERCENT AUTO 8 % (4-13); Mean Corpuscular HGB 27.2 pg (26.0-34.0); Mean Corpuscular HGB Conc 31.3 g/dL (31.5-36.5); Mean Corpuscular Volume 87 fL (80-100); Mean Platelet Volume 9.8 fL (9.1-12.4); NEUTROPHILS ABSOLUTE AUTO 7.55 K/mm3 (1.96-9.15); NEUTROPHILS PERCENT AUTO 81 % (41-73); Platelet Count 355 K/mm3 (150-400); RDW Coefficient Variation 14.3 % (11.7-14.2); RDW Standard Deviation 45.2 fL (35.1-46.3); Red Blood Cell Count 3.38 M/mm3 (3.80-5.20); White Blood Cell Count 9.34 K/mm3 (4.00-11.30)
[2023-11-22 05:21] LABS: Albumin, Blood 2.8 g/dL (3.4-5.0); Albumin/Globulin Ratio 0.8 (0.8-1.8); Bilirubin, Total 0.4 mg/dL (0.1-1.0); Bun/Creatinine Ratio 29.9 (12.0-20.0); Calcium, Blood 7.7 mg/dL (8.5-10.1); Creatinine, Blood 0.94 mg/dL (0.40-1.00); Globulin, Blood 3.7 g/dL (2.2-4.0); Potassium, Blood 4.4 mmol/L (3.5-5.5); Total Protein, Blood 6.5 g/dL (6.4-8.2)
[2023-11-22] MEDS ORDERED: Furosemide 10 MG / ML 2ML Vial IV ONE (06:05)
[2023-11-22] MEDS ORDERED: Furosemide 10 MG / ML 2ML Vial ONE (06:05)
--- NOTE | 2023-11-22 06:20 | NUR ---
UPDATE PT CONTACTED AND NOTIFIED OF STATUS CHANGE.
--- NOTE | 2023-11-22 06:25 | NUR ---
RESPIRATORY STATUS AROUND 0555 DRUPAL ARCHITECT CLYDE WAS SITTING AT ASSORTMENT PLANNER WHEN SHE HEARD PT REPORTING THAT SHE COULD NOT BREATHE. PT WAS COUGHING AND HACKING. ANXIOUS AND DIAPHORETIC. PT COUGHING UP BLOODY SPUTUM. PT WAS MAINTAINING SATS IN THE MID 90'S AT THAT TIME. BUT STILL REPORTING DIFFICULTY BREATHING. CLYDE ENTERED ROOM AND NOTICED PT IN DISTRESS. SHE AUSCULTATED LUNGS, AND NOTICED THAT WERE WET AND COURSE. CLYDE CALLED AND NOTIFIED DR. GOMEZ OF PT RESPIRATORY DISTRESS. HE ORDERED LASIK IV. I AUSCULATED PT LUNGS AND ALSO NOTED THEM TO BE WET, AND COURSE. PRIOR TO THIS TIME, PT HAD BEEN WITHOUT RESPIRATORY DISTRESS T/O THE NIGHT AND MAINTAINED HER SATS ON BIPAP WHILE SLEEPING AND ON 4L VIA NC WHEN AWAKE. RT MONITORED PT THROUGH OUT THE NIGHT. 0600- PT IS HOLDING YANKER TO REMOVE SECREATIONS. PT IS FLUSHEDM AND DIAPHORETIC. STILL ALERT AND CONVERSING WITH STAFF. HOB IS ELEVATED. 0605- PT MEDICATED WITH LASIK, BLADDER SCAN PERFORMED SHOWED 202 MLS. VITALS OBTAINED. 0615- THIS RN MEDICATED WITH IV ATIVAN FOR ANXIETY 0620- RT CALLED AND V60 BIPAP PLACED, PT NOT ABLE TO MAINTAIN SATS ABOVE 90%. IMMEDIATELY AFTER BIPAP PLACED SATS WERE CORRECTED AND IS NOW IN THE 90'S. 60872- PT REPORTS THAT SHE IS FEELING MUCH BETTER. PT APPEARS MORE AT EASE. SATS ABOVE 90%.
[2023-11-22] MEDS ORDERED: Furosemide 10 MG/ML 4ML Vial IV ONE (06:50)
[2023-11-22] MEDS ORDERED: LORazepam 2 MG/ML 1ML Injection IV ONE (07:15)
[2023-11-22] MEDS ORDERED: Albuterol 2.5 MG/3 ML VIAL INH PRN (07:45)
[2023-11-22 07:50] LABS: Base Excess Venous -1.9 mmol/L; Bicarbonate Venous 21.9 mmol/L (24.0-30.0); PCO2 Venous 63.2 mmHg (38-42)
[2023-11-22 07:51] LABS: pH Blood Venous 7.22 (7.34-7.37)
[2023-11-22 12:20] LABS: Adenovirus Not Detected (NOT DETECT); Coronavirus 229E Not Detected (NOT DETECT); Coronavirus HKU1 Not Detected (NOT DETECT); Coronavirus NL63 Not Detected (NOT DETECT); Coronavirus OC43 Not Detected (NOT DETECT); Human Metapneumovirus Detected (NOT DETECT); Human Rhinovirus/Enterovirus Not Detected (NOT DETECT); Influenza A/2009-H1 Not Detected (NOT DETECT); Influenza A/H1 Not Detected (NOT DETECT); Influenza A/H3 Not Detected (NOT DETECT); Influenza B Not Detected (NOT DETECT); Parainfluenza Virus 1 Not Detected (NOT DETECT); Parainfluenza Virus 2 Not Detected (NOT DETECT); Parainfluenza Virus 3 Not Detected (NOT DETECT); Parainfluenza Virus 4 Not Detected (NOT DETECT); Respiratory Syncytial Virus Not Detected (NOT DETECT); SARS-Cov-2 (COVID-19), BioFire Not Detected (NOT DETECT)
[2023-11-22 12:21] LABS: Bordetella pertussis Not Detected (NOT DETECT); Chlamydophila pneumoniae Not Detected (NOT DETECT); Mycoplasma pneumoniae Not Detected (NOT DETECT)
--- NOTE | 2023-11-22 18:26 | NUR ---
Shift Summary This am pt on bipap, resp rate 30-40's, labored breathing on bipap 18/12 50% fio2, rt at bedside this am adjusting setting. discussed with Dr Oliveira this am. This afternoon pt tolerated a bipap break on 4l o2 via nc. Pt alert, but falling asleep quickly, answering questions appropriately. Pt denies pain, chest pain/pressure, nasuea, dizziness and numb/tingling. Tele sinus/sinus tach, bp elevated this am, trending down. Abd soft, nontender. Other vss. No other acute changes noted. Will continue to monitor.
--- NOTE | 2023-11-22 23:22 | NUR ---
ASSUMPTION OF CARE: PATIENT IS ALERT AND ORIENTED X 3 DIFFICULTY WITH COMMUNICATION DUE TO ADENTULOUS, WORK OF BREATHING, AND MINOR DECREASED COGNITION. PATIENT IS COOPERATIVE, ABLE TO USE THE CALL LIGHT. IZAIAH IS ON BIPAP SEE RT NOTES. DURING THIS NOTE 09/06 40% FL 75 95% SPO2 RR LOW 20'S WITHOUT COUGHING UP TO THE 30-40 WHEN COUGHING OR ON BREAKS OF NC. PATIENT HAS HAD DIFFICUTLY WITH SWALLOWING DUE TO RR. I HAVE EDUCATED PATIENT THAT SHE NEEDS TO BACK OFF FLUIDS, DOES NOT UNDERSTAND. MEDICAL KNOWLEDGE DEFICIT. PATIENT REFUSING CERTAIN CARE'S AT TIMES. PATIENT DENIES CHEST PAIN OR PRESSURE.
[2023-11-23] VITALS (35 sets, daily range): BP systolic 83–223; BP diastolic 31–144
[2023-11-23] MEDS ORDERED: LORazepam 2 MG/ML 1ML Injection IV ONE (02:45)
[2023-11-23] MEDS ORDERED: HydrALAZINE HCl 20 MG / ML 1ML Vial IV ONE (03:30)
[2023-11-23] MEDS ORDERED: Furosemide 10 MG/ML 4ML Vial ONE ×2 (03:37→03:52)
[2023-11-23] MEDS ORDERED: Furosemide 10 MG/ML 4ML Vial IV ONE ×2 (03:43→03:50)
[2023-11-23] MEDS ORDERED: HydrALAZINE HCl 20 MG / ML 1ML Vial ONE (03:48)
[2023-11-23 03:53] LABS: PCO2 Arterial 78.4 mmHg (35-45); PO2 Arterial 135 mmHg (80-100); pH Blood Arterial 7.12 (7.35-7.45)
[2023-11-23 04:35] LABS: BASOPHILS ABSOLUTE AUTO 0.03 K/mm3 (0.00-0.23); BASOPHILS PERCENT AUTO 0 % (0-2); EOSINOPHILS PERCENT AUTO 0 % (0-6); Hematocrit 36.4 % (33.0-51.0); Hemoglobin 11.4 g/dL (11.5-16.0); IMMATURE GRAN ABSOLUTE AUTO 0.29 K/mm3 (0.00-0.10); IMMATURE GRAN PERCENT AUTO 2 % (0-1); LYMPHOCYTES ABSOLUTE AUTO 1.07 K/mm3 (0.84-5.20); LYMPHOCYTES PERCENT AUTO 8 % (21-46); MONOCYTES ABSOLUTE AUTO 0.75 K/mm3 (0.16-1.47); MONOCYTES PERCENT AUTO 6 % (4-13); Mean Corpuscular HGB 27.5 pg (26.0-34.0); Mean Corpuscular HGB Conc 31.3 g/dL (31.5-36.5); Mean Corpuscular Volume 88 fL (80-100); Mean Platelet Volume 9.8 fL (9.1-12.4); NEUTROPHILS ABSOLUTE AUTO 11.47 K/mm3 (1.96-9.15); NEUTROPHILS PERCENT AUTO 84 % (41-73); Platelet Count 484 K/mm3 (150-400); RDW Coefficient Variation 14.5 % (11.7-14.2); RDW Standard Deviation 46.6 fL (35.1-46.3); Red Blood Cell Count 4.15 M/mm3 (3.80-5.20); White Blood Cell Count 13.61 K/mm3 (4.00-11.30)
[2023-11-23 04:54] LABS: Albumin/Globulin Ratio 0.7 (0.8-1.8); Bilirubin, Total 0.6 mg/dL (0.1-1.0); Bun/Creatinine Ratio 29.6 (12.0-20.0); Creatinine, Blood 1.35 mg/dL (0.40-1.00); Globulin, Blood 4.4 g/dL (2.2-4.0); Potassium, Blood 4.8 mmol/L (3.5-5.5); Total Protein, Blood 7.4 g/dL (6.4-8.2)
--- NOTE | 2023-11-23 06:00 | NUR ---
CALL TO PT'S THIS CHARGE NURSE CONTACTED THE PT'S TO PROVIDE AN UPDATE AND TO DISCUSS POTENTIAL NEED FOR DECISION MAKING. PT HAS BEEN WORSENING DURING THE SHIFT AND A LOW BLOOD PRESSURE PROMPTED THIS PHONE CALL FOR THE POSSIBLE NEED OF ICU TRANSFER FOR PRESSORS. PT IS A DNR BUT THERE IS NO POLST IN THE CHART WITH WISHES PERTAINING TO LEVEL OF TREATMENT. SPOKE FOR SEVERAL MINUTES TO "FALGUNI" AND HE WAS ABLE TO ANSWER ALL QUESTIONS APPROPRIATELY AND SEEMED TO BE A GOOD HISTORIAN. HOWEVER, HIS RESPONSES WERE CHILD-LIKE AND HE DID NOT SEEM TO UNDERSTAND THE SEVERITY OF THE PT'S PROGNOSIS. WHEN THE PT'S BLOOD PRESSURE WAS MENTIONED WITH THE CONCERN FOR A POSSIBLE NEED FOR TRANSFER TO ICU, FALGUNI STATED "OH, SHE HAS MEDICINE FOR BLOOD PRESSURE, WOULD YOU LIKE ME TO BRING THAT IN TOMORROW?". HE ALSO STATED THAT HE DOES NOT DRIVE AND THAT HE HAS A CAREGIVER PRESENT ON MONDAYS AND WEDNESDAYS. HE SAID THAT THE CAREGIVER WILL TAKE HIM WHERE HE NEEDS TO GO AND THIS IS HOW HE'S PLANNING TO COME IN TO THE HOSPITAL TOMORROW. AFTER THIS CONVERSATION, I UPDATED THE PRIMARY RN EMIL AND REQUESTED AN ETHICS CONSULT FOR FURTHER DISCUSSION ABOUT THE BEING THE DECISION MAKER AND THE POTENTIAL NEED FOR HIGHER LEVEL OF CARE. AFTER THIS DISCUSSION TOOK PLACE, THE PT'S BLOOD PRESSURE IMPROVED AND SHE APPEARED TO STABILIZE AT THIS TIME. UPDATED THE ONCOMING CHARGE NURSE AT LENGTH.
--- NOTE | 2023-11-23 07:00 | NUR ---
CARE ASSUMPTION DURING BEDSIDE SHIFT REPORT W EMIL RN THE PT IS LYING IN BED ON THE BIPAP W RT LOUIS AT THE BS. PT'S RESP ARE LABORED W RR IN THE 30'S. SPO2 >92% ON BIPAP 16/10 W 40% FIO2. PT'S BP WNL. PT AFEBRILE. PT COMMUNICATING W STAFF BUT IS VERY CONFUSED. MONITOR SHOWING SR 90'S-100'S. PT HAS PUREWICK IN PLACE AND IS VOIDING CLEAR YELLOW URINE.
--- NOTE | 2023-11-23 07:41 | NUR ---
LATE ENTRY SIGNIFICANT EVENT/ EOS: PATIENT AT APPROXIMATELY 0255 STARTED HAVING INCREASED COUGHING, DECREAEING OXYGEN DEMAND AND INCREASED BLOOD PRESSURE. SYSTOLIC >200. RR >40.. RT AND RESIDENT TO BEDSIDE ABG, IN TOTAL TWO SEPAERATE DOSES OF 40mg OF LASIX, STAT CHEST XR RESULTS WERE NOT KNOWN AT THIS TIME DUE TO NO RADIOLOGIST ON NIGHT, I HAVE BEEN INFORMED OF IN THE PAST. HOWEVER, PATIENT LUNG SOUNDS CLEARLY SUGGESTIVE OF PULMONARY EDEMA. BIPAP SETTINGS FROM 16/10 @40% TURNED TO 24/12 @60%. PATIENT BLOOD PRESSURE ALMOST HYPOTENSIVE. MAP LESS THAN 60 FOR A BRIEF PERIOD, THAN REOCVERED WITH NO INTERVENTION. PATIENT OVERALL IMPROVED FROM DETERIORATION, HOWEVER, OVERALL WITH THIS BEING SECOND INCIDENT, PALLIATIVE CARE CONSULT WSA WARRENTED, PLEASE SEE BILL DISTRIBUTOR NOTE ABOUT AND POTENTIAL INABILITY FOR DECISION MAKING. PATIENT PURWICK WITH IMPROVED OUTPUT WITH LASIX DOSING. PATIENT MAP >65. BIPAP DEPENDENT. BEDSIDE SHIFT REPORT WITH KAREN Da Silva RN. NO BM. POWERGLIDE STILL DRAWING FLUSHES WELL. AFEBRILE VSS AT TIME OF HAND OFF, BIPAP TO PREVIOUS SETTINGS PRIOR TO SIGNIFICANT EVENT.
--- NOTE | 2023-11-23 09:12 | NUR ---
PROVIDER CONTACT DR. CM AT ASSESSING THE PT. PROVIDER UPDATED ON PT'S EVENTS OVER NOC SHIFT. PROVIDER UPDATED ON PT'S STATUS ON DAYSHIFT THUS FAR INCLUDING THE HELD PO MEDICATIONS. PROVIDER UPDATED ON PT'S POTASSIUM LEVEL AND SCHEDULED POTASSIUM TABS, PO POTASSIUM TABS DC'D AT THIS TIME. THIS RN ASKING PROVIDER ABOUT DOING ECHO, PROVIDER NOT WANTING TO DO THIS AT THIS TIME. PT UNCHANGED FROM SHIFT CHANGE AND REMAINS ON BIAP. PT MAKING ADEQUATE URINE.
--- NOTE | 2023-11-23 10:11 | NUR ---
FAMILY CONTACT PT'S SPOUSE "GASTON" CALLED ASKING FOR UPDATES ON THE PT'S CONDITION. THIS RN EDUCATING THE PT'S SPOUSE THAT THE PT'S RESPIRATORY STATUS HAS NOT IMPROVDE AND THAT SHE MUST KEEP THE BIPAP MASK ON AT ALL TIMES UNTIL SHE IMPROVES. THSI RN ALSO EDUCATING THE SPOUSE THAT THE PT HAS S/S OF ACUTE HEART FAILURE AND BEING TREATED FOR THAT WELL. PT'S SPOUSE W MINIMAL RESPONSE TO THIS JST SAYING "OKAY". WHEN THIS RN CONFIRMED THE PT'S DNR STATUS W THE SPOUSE AND THAT HTHEY DO NOT WANT HER INTUBATED HE RESPONDED, "NO I WLL HAVE HER CREMATED". THIS RN EXPLAINING THAT INTUBATED MEANS A TUBE IN HER AIRWAY ON A VENTILATOR TO HELP HER BREATH WHICH HE REPLIED, "NO, IF SHE CAN'T BREATH A MACHINE WON'T HELP". THE PT'S SPOUSE EXPRESSING HIS INTENT ON COMING TO THE HOSPITAL ON Friday11/24/23. PT'S SPOUSE THANKING THIS RN AND ASKED IF i WOULD TELL TAMIE THAT HE LOVES HER. THIS RN ASSURED HIM THAT i WILL RELAY THE MESSAGE AND THANKED HIM FOR HIS CALL.
[2023-11-23] MEDS ORDERED: Vancomycin HCL 1,250 MG in NS 250 ML IV SCH (12:00)
[2023-11-23 15:54] LABS: PO2 Arterial 60.3 mmHg (80-100); pH Blood Arterial 7.39 (7.35-7.45)
--- NOTE | 2023-11-23 17:32 | NUR ---
DAY SHIFT SUMMARY PT HAS REMAINED ON THE BIPAP THIS SHIFT 16/10 W 40% FIO2 UNTIL THIS AFTERNOON WHEN HER ABG LOOKED BETTER AND WAS GIVEN A BREAK FROM THE BIPAP ON 5L NC. WITHIN 20 MINUTES OF THIS BREAK THE PT STARTED TO BECOME VERY HYPERTENSIVE SO SHE WAS PLACED BACK ON THE BIPAP 16/10 W 30% FIO2. PT BP ELEVATED THIS SHIFT W SBP 140'S-170'S. MONITOR SHOWING SR 80'S -ST 100'S DEPENDING ON HER ACTIVITY. PT'S RESP RATE HAS MAINTAINED IN THE HIGH 20'S-30'S THIS SHIFT ON BIPAP. PT AFEBRILE THIS SHIFT. PT W PUREWICK IN PLACE VOIDING 700ML THIS SHIFT. NO BM THIS SHIFT. PT HAS BEEN NPO THIS SHIFT SHE HAS REMAINED IN RESP DISTRESS FINDING IT DIFFICULT TO EVEN TALK DUE TO DYSPNEA. ORAL CARE DONE NUMEROUS TIMES THIS SHIFT THE PT'S MOUTH HAS BEEN VERY DRY AND CRACKED. PT'S MENTATION IMPROVING THIS SHIFT BUT SHE REMAINS CONFUSED NEEDING REORIENTED ABOUT HER PHYSICAL LIMITATIONS. PT'S SPOUSE UPDATED, SEE PREVIOUS NOTES, WILL REPORT TO ONCOMING RN.
[2023-11-23] MEDS ORDERED: HydrALAZINE HCl 20 MG / ML 1ML Vial IV PRN (19:00)
[2023-11-24] VITALS (55 sets, daily range): BP systolic 90–162; BP diastolic 15–121
[2023-11-24 04:48] LABS: BASOPHILS ABSOLUTE AUTO 0.04 K/mm3 (0.00-0.23); BASOPHILS PERCENT AUTO 0 % (0-2); EOSINOPHILS PERCENT AUTO 0 % (0-6); Hematocrit 30.5 % (33.0-51.0); Hemoglobin 9.8 g/dL (11.5-16.0); IMMATURE GRAN ABSOLUTE AUTO 0.27 K/mm3 (0.00-0.10); IMMATURE GRAN PERCENT AUTO 3 % (0-1); LYMPHOCYTES ABSOLUTE AUTO 1.01 K/mm3 (0.84-5.20); LYMPHOCYTES PERCENT AUTO 10 % (21-46); MONOCYTES ABSOLUTE AUTO 0.93 K/mm3 (0.16-1.47); MONOCYTES PERCENT AUTO 9 % (4-13); Mean Corpuscular HGB 27.4 pg (26.0-34.0); Mean Corpuscular HGB Conc 32.1 g/dL (31.5-36.5); Mean Corpuscular Volume 85 fL (80-100); NEUTROPHILS ABSOLUTE AUTO 7.84 K/mm3 (1.96-9.15); NEUTROPHILS PERCENT AUTO 78 % (41-73); Platelet Count 390 K/mm3 (150-400); RDW Coefficient Variation 14.6 % (11.7-14.2); RDW Standard Deviation 45.4 fL (35.1-46.3); Red Blood Cell Count 3.58 M/mm3 (3.80-5.20); White Blood Cell Count 10.09 K/mm3 (4.00-11.30)
[2023-11-24 05:09] LABS: Albumin, Blood 2.8 g/dL (3.4-5.0); Albumin/Globulin Ratio 0.7 (0.8-1.8); Bilirubin, Total 0.5 mg/dL (0.1-1.0); Bun/Creatinine Ratio 37.1 (12.0-20.0); Creatinine, Blood 1.32 mg/dL (0.40-1.00); Potassium, Blood 4.2 mmol/L (3.5-5.5); Total Protein, Blood 6.8 g/dL (6.4-8.2)
--- NOTE | 2023-11-24 06:03 | NUR ---
SHIFT SUMMARY A/Ox1-2 AND MOSTLY COOPERATIVE WITH STAFF. HX OF DEMENTIA WITH INTERMITTENT CONFUSION NOTED. EASILY REDIRECTABLE. CAN BE VERY ANXIOUS AT TIMES. CARDIAC, REMAINS IN SR-ST 90-110'S WITH NO REPORTS OF CP, PRESSURE, OR DIZZINESS. SBP ELEVATED AT START OF SHIFT RANGING 180-190'S. PRN HYDRALAZINE GIVEN WITH GOOD EFFECT WITH SBP RANGING 130-150'S. RESPIRATORY, REMAINS DEPENDENT ON BiPAP 16/10 30% FiO2. LS CONTINUE TO BE VERY COARSE AND DIMINISHED. Q2HR ORAL GIVEN WITH INTERMITTENT MOIST COUGH NOTED. GI/, PURWICK IN PLACE WITH GOOD OUTPUT OF YELLOW URINE. NO BM THIS SHIFT. CONTINUES TO BE BEDREST DUE TO O2 DEMAND. ETHICS CONSULT TO BE CONDUCTED THIS AM. NO NEW ORDERS AT THIS TIME, WILL REPORT TO ONCOMING RN. KARMEN BROTHERS OF THIS NOTE.
[2023-11-24] MEDS ORDERED: Furosemide 10 MG/ML 4ML Vial IV ONE (09:10)
[2023-11-24] MEDS ORDERED: MethylPREDNISolone Sod Succ 125 MG Vial IV SCH (10:00)
--- NOTE | 2023-11-24 10:00 | NUR ---
PT ARRIVAL... PT ARRIVED TO THE UNIT FROM PCU AT 0947. PT IS ON 15L OXYMASK WITH O2 SATS>90%. PT'S RR IS IN THE 30'S, ACCESSORY MUSCLE USE NOTED. L/S COARSE AND TIGHT WITH SCATTERED WHEEZES T/O. PT WAS CHANGED OVER TO THE BIPAP. PURWICK WAS PLACED. ATTENDS ARE C/D/I AT THE TIME OF THIS ASSESSMENT. ORAL CARE DONE BY PRINCESS AND THIS RN. WILL CONTINUE TO MONITOR.
[2023-11-24] MEDS ORDERED: levETIRAcetam 750 MG in NS 100 ML IV SCH (10:05)
--- NOTE | 2023-11-24 10:11 | NUR ---
CARE OF PT ASSUMED AT 0700. BEDSIDE REPORT TAKEN. PT INITIALLY SLEEPING ON BIPAP 16/10 30% FIO2. AROUND 0800, SATS DROP TO 88% AND WOB INCREASED WITH RESP 40'S. LUNGS TIGHT WITH SCATTERED WHEEZES TO UPPER LOBES AND FINE CRACKLES TO BASES. RT CALLED TO ASSIST. BREATHING TRATMENT GIVEN. WITH RT ASSIST MASK REMOVED TO CHECK MOUTH; EXTENSIVE CASTING NOTED TO PALATE, AROUND GUMS, AND TO BACK OF THROAT. MIGILL FORCEPTS USED BY RT TO REMOVE CAST THAT APPEARED TO BE OBSTRUCTING AIRWAY. MOST OF THE CAST TO PALATE AND GUMS REMOVED ALONG WITH A PARTIAL CAST TO BACK OF THROAT. OXY MASK AT 15L USED DURING ORAL CARE AND SATS REMAINED >90%. PT WITH INCREASED LABORED BREATHING AFTER ORAL CARE, ATIVAN 0.5MG GIVEN WITH GOOD EFFECT, RESP DROPPED FROM 40'S TO 20'S. RT ATTEMPTED TO PLACE PT BACK ON BIPAP BUT DESATURATED TO MID 80%, AFTER SEVERAL MIN'S PT PLACED AGAIN ON OXYMASK AT 15L, SATS CAME UP TO 94%. DR GARCIA CALLED AND WAS AT BEDSIDE SHORTLY AFTER; LASIX 40MG IV GIVEN, STAT CHEST XRAY TAKEN. DR GRIDER CONSULTED FOR RESP FAILURE/DISTRESS, PT TRANSFERED TO ICU AT 1000 WHERE BEDSIDE REPORT WAS GIVEN. PT ABLE TO STATE NAME AND BIRTHDAY BUT VERY SHORT OF BREATH WITH SPEECH; PT KEPT NPO.
[2023-11-24] MEDS ORDERED: Ondansetron HCl 2 MG / ML 2ML Vial IV PRN ×2 (10:15→10:25)
[2023-11-24] MEDS ORDERED: Ondansetron HCl 2 MG / ML 2ML Vial ONE (10:15)
[2023-11-24] MEDS ORDERED: Ipratropium/Albuterol SulF 2.5-0.5MG/3 ML Amp INH SCH (10:25)
--- NOTE | 2023-11-24 10:31 | NUR ---
I ATTEMPTED TO CALL PATIENTS TO UPDATE HIM; NO ANSWER, ANSWERING MACHINE NOT AVAILABLE.
[2023-11-24 11:40] LABS: Vancomycin, Trough 20.3 ug/mL (5.0-10.0)
--- NOTE | 2023-11-24 12:58 | NUR ---
Ethics consultation services requested and performed. Concerns voiced by PCU smelter charger relating to the decisional fitness of the principals spouse. Medical history, case notes, and family constellation reviewed. Conversation facilitated with the admitting provider who reports extensive interaction with the patients . She confirms that while the principals spouse has a marked auditory deficit, he displayed clear evidence of capacity and resonable use of faculties in discussing the clinical details of his wifes case, the risks and benefits associated with the implementation of aggressive measures, and the implications of forgoing invasive care efforts. It was reported that he was able to comprehend, process, reframe, and logically articulate the incapacitated principals medical wishes. According to Dr Nava, per the attestation of the , the principal would want non-disproportionate stabalizing care, but would not be in favor of depending on endless track vehicle mechanic life sustaining interventions, or undergoing medically non-beneficial treatments. Thank you for this consult. Rigoberto Aguilar, PhD, JUAN DANIEL
[2023-11-24] MEDS ORDERED: Vancomycin HCL 1,000 MG in NS 100 ML IV SCH (13:00)
[2023-11-24] MEDS ORDERED: FentaNYL Citrate 50 MCG/ML 2 ML Injection IV PRN (15:20)
--- NOTE | 2023-11-24 15:27 | NUR ---
Pt has some delirium periods of lucid conversation and expressing needs. Pt labored breathing and discomfort. Suggest no more ativan and careful use of morphine for airhunger. Review of past diagnositics and of pulmonary function test and echo. Pt kps score is 30% Will monitor for symptom management and assist family with decision making. Nursing relays that She does not want her daughter to have information. Will see if we can get aplan with .
[2023-11-24] MEDS ORDERED: NS 250 ML IV PRN (15:45)
--- NOTE | 2023-11-24 18:20 | NUR ---
SHIFT SUMMARY... PT WAS STARTED ON A PRECEDEX DRIP D/T ANXIETY AND BIPAP COMPLIANCE. PRECEDEX DRIP WAS STARTED AT 0.4MCG/KG/HR THEN TITRATED UP TO 0.6MCG/KG/HR, AT 1815 THE PT'S MAPS STARTED TO DROP BELOW 65, THE PRECEDEX DRIP WAS TITRATED BACK DOWN TO 0.4MCG/KG/HR. PT'S HR HAS BEEN SINUS TACH IN THE 110'S MOST OF THIS SHIFT CURRENTLY HR IS IN THE 70'S. PT IS TOLERATING THE BIPAP WELL WITH THE PRECEDEX DRIP. FETNANYL 25-50MCG Q4 PRN WAS ALSO ORDERED FOR THIS PT. PURWICK IS IN PLACE AND WORKING WELL. PT HAD A SMALL INCONT BM THIS SHIFT. CALL LIGHT IN REACH WILL CONTINUE TO MONITOR UNTIL REPORT IS GIVEN TO ONCOMING RN.
--- NOTE | 2023-11-24 21:57 | NUR ---
ASSUMPTION OF CARE BEDSIDE SHIFT REPORT RECEIVED FROM DAYSHIFT RN. PT RESTING IN BED, SLEEPING BUT AROUSABLE TO VERBAL STIMULI. PT ABLE TO ANSWER MOST QUESTIONS, SPEECH IS MUMBLED AND HARD TO UNDERSTAND AT TIMES. PT WEAK BUT ABLE TO FOLLOW COMMANDS. PRECEDEX INFUSING AT 0.4MCG/KG/HR, SEE FLOWSHEET FOR TITRATIONS. HR 60-80'S SINUS, SBP 100-120'S. PT ON OXYMASK AT 10L UPON ASSESSMENT, PT HAD INCREASED WORK OF BREATHING AND ACCESSORY MUSCLE USE. AUDIBLE MOIST RESPIRATIONS HEARD FROM THE DOORWAY. PT SUCTIONED BY RT, PT PLACED BACK ON BIPAP BY THIS RN. BIPAP SETTINGS 12/7 35%, OXYGEN SATURATION >92%. ABDOMEN SOFT NONTENDER, BOWEL TONES HYPOACTIVE BUT PRESENT IN ALL FOUR QUADRANTS. PUREWICK AND ATTENDS IN PLACE TO SUCTION WITH YELLOW OUTPUT. POWERGLIDE IN PLACE TO KAROL INFUSING PRECEDEX WELL NS TKO. BED IN LOWEST POSITION, CALL LIGHT WITHIN REACH, CARE CONTINUES.
[2023-11-25] VITALS (86 sets, daily range): BP systolic 99–164; BP diastolic 45–111
--- NOTE | 2023-11-25 01:34 | NUR ---
PT UPDATE PT BECAME INCREASINGLY ANXIOUS AND AGGGITATED, YELLING AND ATTEMPTING TO PULL TO BIPAP MASK OFF. THIS RN ASKED PT IF THE MASK WAS BOTHERING HER AND IF SHE WOULD LIKE A BREAK TO WHICH SHE SAID YES. BIPAP MASK REMOVED, PT PLACED ON 10L O2 VIA OXYMASK, OXYGEN SATURATION >95%. PRECEDEX INCREASED, SEE FLOWSHEET FOR TITRATIONS. CARE CONTINUES.
[2023-11-25 04:13] LABS: BASOPHILS ABSOLUTE AUTO 0.01 K/mm3 (0.00-0.23); BASOPHILS PERCENT AUTO 0 % (0-2); EOSINOPHILS PERCENT AUTO 0 % (0-6); Hemoglobin 9.2 g/dL (11.5-16.0); IMMATURE GRAN ABSOLUTE AUTO 0.13 K/mm3 (0.00-0.10); IMMATURE GRAN PERCENT AUTO 3 % (0-1); LYMPHOCYTES ABSOLUTE AUTO 0.57 K/mm3 (0.84-5.20); LYMPHOCYTES PERCENT AUTO 11 % (21-46); MONOCYTES ABSOLUTE AUTO 0.25 K/mm3 (0.16-1.47); MONOCYTES PERCENT AUTO 5 % (4-13); Mean Corpuscular HGB 27.1 pg (26.0-34.0); Mean Corpuscular HGB Conc 30.7 g/dL (31.5-36.5); Mean Corpuscular Volume 89 fL (80-100); NEUTROPHILS ABSOLUTE AUTO 4.27 K/mm3 (1.96-9.15); NEUTROPHILS PERCENT AUTO 82 % (41-73); Platelet Count 326 K/mm3 (150-400); RDW Coefficient Variation 14.9 % (11.7-14.2); RDW Standard Deviation 47.8 fL (35.1-46.3); Red Blood Cell Count 3.39 M/mm3 (3.80-5.20); White Blood Cell Count 5.23 K/mm3 (4.00-11.30)
--- NOTE | 2023-11-25 05:07 | NUR ---
SHIFT SUMMARY NO ACUTE CHANGES THIS SHIFT. PT CONTINUES TO REST IN BED, SLEEPING BUT AROUSABLE. PT ANSWERS SOME QUESTIONS APPROPRIATELY, FOLLOWS COMMANDS AND IS ABLE TO MAKE NEEDS KNOWN. PT WEAK BUT MOVES EXTREMITIES EQUALLY SPONTANEOUSLY. PT HAS PERIODS OF ANXIETY WHERE SHE YELLS OUT AND ATTEMPTS TO PULL OFF BIPAP MASK/OXYMASK. PRECEDEX INFUSING AT 0.8MCG/KG/HR, SEE FLOWSHEET FOR TITRATIONS. HR 60-90'S SINUS, MAP >65. PT ON BIPAP CURRENTLY 12/7 35%, OXYGEN SATURATION >95%. ABDOMEN SOFT NONTENDER, PT DENIES N/V, BOWEL TONES ACTIVE IN ALL FOUR QUADRANTS. PUREWICK AND ATTENDS IN PLACE PATENT DRAINING YELLOW URINE. POWERGLIDE IN PLACE TO KAROL INFUSING PRECEDEX WELL NS TKO. BED IN LOWEST POSITION, CALL LIGHT WITHIN REACH, CARE CONTINUES.
[2023-11-25 05:59] LABS: Albumin, Blood 2.6 g/dL (3.4-5.0); Albumin/Globulin Ratio 0.6 (0.8-1.8); Bilirubin, Total 0.4 mg/dL (0.1-1.0); Bun/Creatinine Ratio 43.2 (12.0-20.0); Calcium, Blood 8.3 mg/dL (8.5-10.1); Creatinine, Blood 1.55 mg/dL (0.40-1.00); Globulin, Blood 4.3 g/dL (2.2-4.0); Magnesium, Blood 2.8 mg/dL (1.6-2.4); Phosphorus, Blood 4.3 mg/dL (2.5-4.9); Potassium, Blood 4.4 mmol/L (3.5-5.5); Total Protein, Blood 6.9 g/dL (6.4-8.2)
[2023-11-25 06:07] LABS: Base Excess Venous -3.9 mmol/L; Bicarbonate Venous 21.2 mmol/L (24.0-30.0); PCO2 Venous 44.7 mmHg (38-42); pH Blood Venous 7.31 (7.34-7.37)
[2023-11-25 09:11] LABS: Source, Urine Foley catheter
[2023-11-25 09:15] LABS: Appearance, Urine Hazy (Clear); Bilirubin, Urine Neg (Neg); Blood, Urine 3+ (Neg); Color, Urine Yellow (P-Yellow); Glucose Qualitative, Urine Neg (Neg); Ketones, Urine 2+ (Neg); Leukocyte Esterase, Urine Neg (Neg); Nitrite, Urine Neg (Neg); Protein, Urine 2+ (Neg); Urobilinogen, Urine NORM (Normal)
--- NOTE | 2023-11-25 09:18 | NUR ---
CARE OF PT ASSUMED AT 0700, BEDSIDE REPORT TAKEN. PT INITIALLY ON PRECEDEX GTT 0.6MCG FOR BIPAP MAYNOR 12/7 35%. RASS INITIALLY -3, SLEEPING, AROUSES TO LOUD VOICE/LIGHT SHAKE. PRECEDEX DECREASED TO 0.3MCG THEN PLACED ON STANDBY AT 0910. ATTENDS/WICKING SYSTEM DRY, BLADDER SCAN SHOWED 574CC. DR GRIDER AT BEDSIDE THIS AM, PATEL CATH PLACED PER DR GRIDER; 16F PLACED W/O DIFFICULTY, PT MAYNOR WELL. URINE SENT TO LAB. PT MORE AWAKE NOW, SPEECH MUMBLED BUT ABLE TO STATE NAME AND SOME NEEDS. WHEN AWAKE IF PT UNABLE TO SAFELY TAKE PO, NGT TO BE PLACED WITH NUTRITION CONSULT FOR TUBE FEEDS PER DR GRIDER.
[2023-11-25 09:40] LABS: White Blood Cells, Urine 0-2 /hpf (0-5)
[2023-11-25 09:41] LABS: Bacteria Few /hpf; Granular Casts 0-2 /lpf (0); Squamous Epithelial Cells Rare /hpf (Few)
--- NOTE | 2023-11-25 11:01 | NUR ---
PRECEDEX REMAINS OFF, PT SLEEPING, AWAKENS TO VOICE. PT MAYNOR BIPAP. BEDBATH COMPLETE. POWERGLIDE PLACED TO RAGINI W/O DIFF; PT MAYNOR WELL.
[2023-11-25] MEDS ORDERED: Lidocaine 2% Jelly Uro-Jet TOP ONE (11:45)
--- NOTE | 2023-11-25 13:08 | NUR ---
UNABLE TO PERFORM BEDSIDE SWALLOW D/T LABORED RESPIRATIONS, ACCESSORY MUSCLE USE, RR 30'S. SATS >90% ON OXYMASK AT 8L. DOBHOFF PLACED TO RIGHT NARE W/O DIFFICULTY, TUBE AT 60CM. XRAY TAKEN. BIPAP PLACED IMMEDIATELY AFTER DOBHOFF PLACEMENT. PT SLEEPING NOW, DIETARY NOTIFIED OF TUBE PLACEMENT TO START TUBE FEEDING ORDERS.
--- NOTE | 2023-11-25 13:31 | NUR ---
PT AGITATED, RESTLESS IN BED, YELLING FOR HELP, "I CANT BREATH". PT REQUIRES BIPAP AT THIS TIME FOR RESP DISTRESS. DR GRIDER CALLED AND UPDATED. OKAY TO RESTART PRECEDEX GTT. ORDERS RECIEVED TO GIVE MISSED AM MEDS NOW; SOON DOBHOFF PLACEMENT COMFIRMED. PRECEDEX RESTARTED AT 0.3MCG.
--- NOTE | 2023-11-25 13:55 | NUR ---
PT CALM AND SLEEPING ON BIPAP W RASS -1. PRECEDEX AT 0.3MCG.
--- NOTE | 2023-11-25 14:31 | NUR ---
PT AGITATED AND AWAKE, USING TONGUE TO LIFT BIPAP MASK, SATS DROPPED TO 75%. ATIVAN 0.5MG GIVEN. BIPAP MASK LEAK RESOLVED, SATS 94%.
[2023-11-25] MEDS ORDERED: Bisacodyl 10 MG Supp PR PRN (15:05)
[2023-11-25] MEDS ORDERED: Magnesium Hydroxide Conc 10 ML UDC PT PRN (15:05)
[2023-11-25] MEDS ORDERED: Docusate Sodium 100 MG UDC PT PRN (15:05)
--- NOTE | 2023-11-25 16:52 | NUR ---
PIVOT 1.5 STARTED AT GOAL RATE OF 20CC/HR. PT SLEEPING WITH BIPAP ON, PRECEDEX AT 0.6MCG.
--- NOTE | 2023-11-25 20:44 | NUR ---
ASSUMPTION OF CARE: RECEIVED REPORT FROM DAVID SEVILLA. PT ON BIPAP WITH SETTINGS 07/31 35% FIO2. PT VERY WHEEZY AND DIM T/O. SPO2 >90%. PT DESATS TO LOW 80'S WHEN BIPAP NOT IN PLACE. PT VERY ANXIOUS AND HOLLERING OUT, UNABLE TO ANSWER QUESTIONS OTHER THAN HER NAME. PT ABLE TO SQUEEZE HAND ON RIGHT SIDE BUT NOTICEABLY WEAKER IN THE LEFT. ATTEMPTED TO TURN THE PRECEDEX DRIP DOWN FOR NEURO ASSESSMENT AND PT BECAME VERY ANXIOUS AND STARTED YELLING AND ATTEMPTING TO REMOVE HER BIPAP, NOT REDIRECTABLE. PRECEDEX TURNED BACK UP TO 0.6 MCG/KG/HR AND GIVEN A DOSE OF ATIVAN PER OCT. PT NOW APPEARS TO BE RESTING COMFORTABLY. CONTINUOUS CONTAINER FINISHER IN PLACE, SR WITH HR 70'S. SBP 100'S. PATEL IN PLACE FOR CRITICAL I&O, PATENT AND DRAINING TO GRAVITY. NO BM YET. POWERGLIDE TO BILATERAL UPPER ARMS, BOTH PATENT. TUBE FEED AT GOAL THROUGH DOBHOFF. BED LOW AND LOCKED.
[2023-11-25] MEDS ORDERED: levETIRAcetam 500 MG in NS 100 ML IV SCH (21:00)
[2023-11-25] MEDS ORDERED: Cefepime HCl 1,000 MG in NS 100 ML IV SCH (21:00)
[2023-11-26] VITALS (70 sets, daily range): BP systolic 97–189; BP diastolic 42–135
[2023-11-26 04:42] LABS: Hematocrit 27.5 % (33.0-51.0); Hemoglobin 8.6 g/dL (11.5-16.0); Mean Corpuscular HGB 27.2 pg (26.0-34.0); Mean Corpuscular HGB Conc 31.3 g/dL (31.5-36.5); Mean Corpuscular Volume 87 fL (80-100); Mean Platelet Volume 10.7 fL (9.1-12.4); NRBC ABSOLUTE 0.02 K/mm3 (0.00-0.02); NRBC Auto 0.4 /100 WBC (0.0-0.2); Platelet Count 321 K/mm3 (150-400); RDW Coefficient Variation 14.9 % (11.7-14.2); RDW Standard Deviation 47.9 fL (35.1-46.3); Red Blood Cell Count 3.16 M/mm3 (3.80-5.20); White Blood Cell Count 5.21 K/mm3 (4.00-11.30)
[2023-11-26 05:06] LABS: Calcium, Blood 8.3 mg/dL (8.5-10.1); Creatinine, Blood 1.57 mg/dL (0.40-1.00); Phosphorus, Blood 3.1 mg/dL (2.5-4.9)
--- NOTE | 2023-11-26 05:36 | NUR ---
SHIFT SUMMARY: PT CONTINUES TO REMAIN CONFUSED T/O THE SHIFT. UNABLE TO ANSWER ANY QUESTIONS OTHER THAN HER NAME. FREQUENTLY HOLLERS OUT AND IS HARD TO UNDERSTAND. PT ABLE TO SQUEEZE HANDS WHEN ASKED BUT IS NOTICEABLY WEAKER IN THE LEFT HAND. PT CONTINUES ON BIPAP, SETTINGS REMAIN UNCHANGED. SPO2 >95% T/O THE SHIFT. FREQUENT BREAKS FROM BIPAP T/O THE SHIFT FOR ORAL CARE, PT PLACED ON OXI-MASK FOR ORAL CARE AT 8L. CONTINUOUS BRIMMER BLOCKER REMAINS, SR WITH HR 60'S-70'S. SBP STABLE. PRECEDEX DRIP AT 0.6 MCG/KG/HR. PATEL IN PLACE FOR CRITICAL I&O, DRAINING YELLOW URINE TO GRAVITY. TUBE FEED REMAINS AT GOAL THROUGH DOBHOFF. NO BM THIS SHIFT. POWERGLIDES TO KAROL AND RAGINI REMAIN PATENT. BED LOW AND LOCKED, CALL LIGHT IN REACH.
[2023-11-26 05:46] LABS: BAND PERCENT MAN 4 % (0-8); BASOPHILS PERCENT MAN 0 % (0-2); EOSINOPHILS ABSOLUTE MAN 0.05 K/mm3 (0.00-0.68); EOSINOPHILS PERCENT MAN 1 % (0-6); LYMPHOCYTES % ATYPICAL MANUAL 1 % (0-0); LYMPHOCYTES ABSOLUTE MAN 0.41 K/mm3 (0.84-5.20); LYMPHOCYTES PERCENT MAN 7 % (21-46); MONOCYTES PERCENT MAN 2 % (4-13); NEUTROPHILS ABSOLUTE MAN 4.63 K/mm3 (1.96-9.15); SEG NEUTROPHILS PERCENT MAN 85 % (41-73); TOTAL CELLS COUNTED 100
[2023-11-26] MEDS ORDERED: Enoxaparin 30 MG/0.3 ML SYR SC SCH (09:00)
--- NOTE | 2023-11-26 12:22 | NUR ---
PRECEDEX HAS BEEN TURNED OFF, PT IS TRYING TO ANSWER QUESTIONS AND MAKE APPRO- PRIATE RESPONSES. PT CONTINUES TO REPEAT WORDS SAID TO HER. ORAL CARE AND DRY MOUTH CARE DONE REPEATEDLY PT CONTINUES TO SLIP OUT HER TONGUE AND TRY TO MOUTH WORDS. THE BACK OF HER PHARYNX IS RAW AND BLEEDING, SHE IS ABLE TO SPIT OUT SOME BLOOD BUT HER COUGH IS WEAK. SHE SOUNDS WET BUT IS UNABLE TO CLEAR FULLY. ATTEMPTS TO SUCTION BUT CAREFUL TO NOT INCREASE BLEEDING. PT IS WIG- GLING HER TOES ON COMMAND BUT HAS YET TO MOVE HER LEFT ARM INTENTIONALLY OR ON COMMAND. HER BREATHING IS RAPID AND SHALLOW. SATS REMAIN >90%. OXIMASK ON AT THIS TIME AND UP TO 8L.
--- NOTE | 2023-11-26 12:57 | NUR ---
Spoke to pt's Jonny by phone. He states he doesn't drive, and he won't be able to get a ride in to see pt again until this monday 11/27. He states he's CHEESH-NA, but is able to answer questions appropriately. We agree to meet in person at patient's room on friday.
--- NOTE | 2023-11-26 13:25 | NUR ---
PT CONTINUES OFF THE PRECEDEX, CAN ANSWER SHE IS IN [place], NGUYEN IS PRESI- DENT, CANT IDENTIFY THE HOSPITAL. SHE WAS OFF THE BIPAP FOR SEVERAL HOURS AND HAS NOW RETURNED. HER BREATHING CONTINUES IN THE HI 20'S AND MOUTH BLEEDING HAS SLOWED. SHE WAS INCONTINENT OF SMALL AMOUNT OF STOOL, CLEANED AND CHANGED AND TURNED. PT'S WORK OF BREATHING AND FEELING OF "CAN'T BREATHE" ENCOURAGED REPLACEMENT OF THE BIPAP. PT UNDERSTANDING AND COOPERATIVE.
[2023-11-26] MEDS ORDERED: MethylPREDNISolone Sod Succ 125 MG Vial IV SCH (16:00)
--- NOTE | 2023-11-26 17:50 | NUR ---
PT HAS BEEN OFF PRECEDEX SINCE 1120 THIS AM. SHE IS CLEARING MENTATION SCHAEFER AND IS ABLE TO ANSWER QUESTIONS MORE APPROPRIATELY. SHE WAS ABLE TO EXPRESS HER PAIN THIS AFTERNOON AND WAS MEDICATED FOR SUCH. SHE HAS BEEN ON THE BIPAP FOR THE MAJORITY OF THE AFTERNOON AFTER BEING OFF AND ON OXIMASK FOR A COUPLE OF HOURS TODAY. HER MOUTH CONTINUES TO BE FRAGILE AND BLEEDING. MOUTH MOISTURE USED OFTEN AND TEACHING OF USING HER OWN SALIVA TO PRACTICE SWALLOWING AND KEEPING HER MOUTH MOIST. SHE IS ABLE TO COMPREHEND BETTER AT THE END OF THE SHIFT VS THE BEGINNING. SHE DOES CONTINUE TO YELL OUT, BUT WITH CALM REAS- SURANCE SHE IMPROVES HER COMMUNICATION. IV'S REMAIN PATENT/INTACT, TKO HAS BEEN STOPPED FOR NOW. TUBE FEEDINGS OF PIVOT 1.5 @ 25ML/HR CONTINUES WITH H20 FLUSHES OF 200ML Q4H. PATEL WITH MINIMAL OUTPUT. STIFFNESS, LACK OF MOBILITY CONTINUES IN THE UPPER EXTREMITIES. MINIMAL MOVEMENT INITIATED BY PATIENT.
--- NOTE | 2023-11-26 18:04 | NUR ---
PT confused t/o shift. She was unable to answer questions but can yell out phrases to express her needs including "pain". Precedex drip was 0.6mcg/kg/hr at 1120AM before starting sedation vacation per Dr. Fields. Patient became more alert, but still yelled out and screamed when stimulated by nurse in room or respiratory therapy. Patient expresses discomfort when repositioned through rigidity and moaning. L-shoulder is particularly painful when touched. Both KAROL and RAGINI PICC remain patent and flush well. Notably, PT has bright red bleeding sore on soft palate and back of throat that bled throughout the day causing bright red saliva and secretions to leak around her biPAP. Patient tolerated Oximask for oral care and 2 hour break from biPAP. Urine output remains around 30/ml hour throughout day and patient met feeding goal through Dobhoff. Fluids increased from 30ml flushes to 200ml. Bed low, call light in reach, and room lights dimmed for PT comfort.
[2023-11-26] MEDS ORDERED: Metoprolol Tartrate 25 MG Tab PO SCH (21:00)
--- NOTE | 2023-11-26 23:15 | NUR ---
Assumed care of pt at 1900 Pt observed lying on hospital bed, appears uncomfortable and restless. Pt is attatched to nuclear monitoring technician and rate of 120s. Pt is currently on bi-pap and does not appear to be tolerating it well, she is using right hand to grab at her mask. Current settings are 12/7, FIO2 35%, and rate set is 14. VT is approx 750. PT has dobhoff that is continuously infusing 25ml/hr. Placement is 62cm at right nare. Mora cath in place and is draining to gravity. Pt oriented to self and place. See shift assessment for full assessment details.
--- NOTE | 2023-11-26 23:15 | NUR ---
UPDATE/RESTARTING PRECEDEX PT CONT TO BE VERY RESTLESS AND AGITATED REGARDLESS OF ATIVAN AND FENTANYL; CONT TO YELL INTO MASK EVEN AFTER ADDRESSING NEEDS AND REDIRECTING. ATTEMPTED TO HAVE BIPAP MASK OFF WITH OXYMASK ON TO TRIAL TOLERANCE; SHE WAS MORE ALERT DURING THIS TIME, EYES WIDE OPEN, MOVING EXTREMITIES WHEN ASKED, AND OCCASIONALLY ANSWERING QUESTIONS APPROPRITALY. SHE ALSO IS COUGHING UP MORE BLOODY SECRETIONS, RR NOW LOW TO MID 30'S, AND SHE IS UNABLE TO SUSTAIN SPO2 >88%. SHE WAS PLACED BACK ON BIPAP WHERE SHE IS IN THE SAME STATE SHE WAS BEFORE REMOVING MASK. PRECEDEX STARTED AT 0.2MCG/KG/HR FOR A RASS +2.
[2023-11-27] VITALS (40 sets, daily range): BP systolic 91–204; BP diastolic 39–115
--- NOTE | 2023-11-27 00:06 | NUR ---
UPDATE CALL MADE TO DR GRIDER REGARDING INCREASE IN BIPAP SETTINGS; NOW AT 14/8, FIO2 60% TO MAINTAIN SPO2 >88%; SHE CONT TO HAVE LARGE AMOUNTS OF BLOOD POOLING AT THE BACK OF HER MOUTH/THROAT; PRECEDEX INFUSING AT 0.4MCG/KG/HR NOW. INSTRUCTIONS FROM DR GRIDER IS TO CONT TO TITRATE BIPAP SETTING UP IF NEEDED, SHE IS A DNR/DNI SO NO PLAN FOR INTUBATION; NEW ORDER PROVIDED FOR CHEST XRAY IN THE AM. RT AT BEDSIDE AND COMMUNICATED INSTRUCTIONS WITH.
[2023-11-27] MEDS ORDERED: Tranexamic Acid 1,000 MG in NS 100 ML IV ONE ×2 (01:30→21:05)
[2023-11-27] MEDS ORDERED: Tranexamic Acid 1000 MG/10 ML 10ML Vial (SDV) INH SCH (01:30)
--- NOTE | 2023-11-27 01:33 | NUR ---
UPDATE CALL MADE TO DR HARDING REGARDING INCREASE IN BLOODY SECREATIONS POOLING IN PT MOUTH; WHEN BIPAP MASK REMOVED, LOUD GURGLING NOTED AND LARGE AMOUNT OF BLOODY SECREATIONS SUCTIONED; NASAL TRUMPET PLACED BY RT AND SUCCESSFULLY SUCTIONED MORE BLOODY SECREATIONS. DR HARDING PROVIDED NEW ORDERS FOR TXA VIA NEB AND IV; FENTANYL AND ATIVAN FREQUENCY CHANGED; INR LAB WORK TO BE DONE NOW TOO.
[2023-11-27] MEDS ORDERED: LORazepam 2 MG/ML 1ML Injection IV PRN (01:35)
[2023-11-27] MEDS ORDERED: FentaNYL Citrate 50 MCG/ML 2 ML Injection IV PRN (01:35)
[2023-11-27 01:59] LABS: International Normalized Ratio 1.14; Prothrombin Time Results 11.9 Sec (9.7-11.5)
[2023-11-27 04:49] LABS: BASOPHILS ABSOLUTE AUTO 0.02 K/mm3 (0.00-0.23); BASOPHILS PERCENT AUTO 0 % (0-2); EOSINOPHILS PERCENT AUTO 0 % (0-6); Hemoglobin 9.8 g/dL (11.5-16.0); IMMATURE GRAN ABSOLUTE AUTO 0.48 K/mm3 (0.00-0.10); IMMATURE GRAN PERCENT AUTO 4 % (0-1); LYMPHOCYTES ABSOLUTE AUTO 0.72 K/mm3 (0.84-5.20); LYMPHOCYTES PERCENT AUTO 5 % (21-46); MONOCYTES ABSOLUTE AUTO 0.84 K/mm3 (0.16-1.47); MONOCYTES PERCENT AUTO 6 % (4-13); Mean Corpuscular HGB 26.6 pg (26.0-34.0); Mean Corpuscular HGB Conc 30.6 g/dL (31.5-36.5); Mean Corpuscular Volume 87 fL (80-100); Mean Platelet Volume 10.5 fL (9.1-12.4); NEUTROPHILS ABSOLUTE AUTO 11.35 K/mm3 (1.96-9.15); NEUTROPHILS PERCENT AUTO 85 % (41-73); NRBC ABSOLUTE 0.11 K/mm3 (0.00-0.02); NRBC Auto 0.8 /100 WBC (0.0-0.2); Platelet Count 429 K/mm3 (150-400); RDW Coefficient Variation 15.2 % (11.7-14.2); RDW Standard Deviation 48.9 fL (35.1-46.3); Red Blood Cell Count 3.68 M/mm3 (3.80-5.20); White Blood Cell Count 13.41 K/mm3 (4.00-11.30)
[2023-11-27 05:10] LABS: Magnesium, Blood 2.7 mg/dL (1.6-2.4)
[2023-11-27 05:11] LABS: Calcium, Blood 8.3 mg/dL (8.5-10.1); Creatinine, Blood 1.53 mg/dL (0.40-1.00); Phosphorus, Blood 2.7 mg/dL (2.5-4.9); Potassium, Blood 4.6 mmol/L (3.5-5.5)
[2023-11-27] MEDS ORDERED: Pantoprazole Sodium 40 MG Injection IV SCH (06:00)
--- NOTE | 2023-11-27 06:29 | NUR ---
RN SHIFT SUMMARY NO CHANGES SINCE LAST NOTE. PT APPEARS TO BE COMFORTABLE ON BED AND SLEEPING. CURRENT BIPAP SETTINGS ARE 14/8, FIO2 55%. PT SECRETIONS FROM MOUTH HAVE DECREASED. TUBE FEEDING VIA DOBHOFF CONTINUES AT 25ML/HR. PRECEDEX RUNNING AT 0.4MCG/KG/HR. PT WAS ABLE TO FOLLOW COMMANDS T/O EVENING. OYSTER FARMER STRENGTH TO L. UPPER EXTREMITIY REMAINS WEAK. PT HR IS SINUS IN THE 80S AND CARDIAC MONITORING CONTINUES. PT HAD 3 MODERATE BOWEL MOVEMENTS T/O NIGHT, BOTH LOOSE AND BROWN IN COLOR. PATEL CATH REMAINS IN PLACE AND IS DRAINING TO GRAVITY. PT HAS BILATERAL POWERGLIDES TO UPPER EXTREMITIES, PATENCY CONFIRMED. MULTIPLE AGED BRUISES OBSERVED TO PT AND NOTED IN ASSESSMENT.
[2023-11-27] MEDS ORDERED: MethylPREDNISolone Sod Succ 40 MG VIAL IV SCH (16:00)
--- NOTE | 2023-11-27 18:33 | NUR ---
TAMIE HAS REMAINED ON BIPAP T/O THE SHIFT. HER FIO2 IS DOWN TO 45% AND SHE IS TOLERATING THIS WELL. SHE REMAINS ON PRECEDEX @ 0.4MCG/KG/HR YET ABLE TO COM- MUNICATE AND ANSWER QUESTIONS APPROPRIATELY. HER ORAL PHARYNX IS IMPROVED AND THE BLEEDING HAS CEASED WITH EVIDENCE OF BLOOD CLOTTING T/O THE DAY WITH ORAL CARE. LAST ORAL CARE WITH MINIMAL BLOOD RETURN. SHE CONTINUES WITH PIVOT 1.5 AT 25ML/HR AND 200ML/4HR OF WATER. SHE HAS HAD TWO BOWEL MOVEMENTS THIS SHIFT AND AN INCREASE IN HER URINE OUTPUT THIS SHIFT. HER SKIN REMAINS FRAGILE AND BLEEDS EASILY. SCD'S IN PLACE, LOVENOX STOPPED, ORAL A/C'S CONTINUE (ASA AND PLAVIX). WILL CONTINUE WITH PLAN OF CARE.
--- NOTE | 2023-11-27 18:37 | NUR ---
PT HAS BEEN DROWSY BUT AROUSABLE ON ASUMPTION OF CARE. PRECEDEX WAS RESTARTED DURING OXIDIZED FINISH PLATER AT 0.4MCG AND PRN DOSING FOR PAIN.SHE WAS ABLE TO RESPOND TO VERBAL COMMANDS THROUGHOUT THE DAY, PT MET GOALS FOR TUBE FEED AND FLUID INTAKE. URINE OUTPUT WAS GREATER THAN 35ML/HR. PT WAS WELL CONTROLLED WITH IV FENTANYL AND SHE RESPONDED WELL TO ORAL CARE, BED BATH, AND BRIEF CHANGES. OVERALL, PATIENT MOUTH ULCER LOOKED IMPROVED AND BLEEDING WAS CONTROLLED BY TXA ADMINISTRATION FROM RESPIRATORY.
--- NOTE | 2023-11-27 21:58 | NUR ---
ASSUMPTION OF CARE NOTE ASSUME CARE OF PT AT 1915. PT LYING ON HOSPITAL BED AND APPEARS UNCOMFORTABLE. THIN, BLOODY SECRETIONS OBSERVED AROUND BIPAP MASK. BIPAP SETTINGS ARE 14/8, FIO2 50% PT REMAINS ON MAXILLOFACIAL PATHOLOGY, SINUS IN THE 80S. PULSES PRESENT TO ALL LIMBS. PT FOLLOWING VERBAL COMMANDS AT THIS TIME. PATEL CATH REMAINS IN PLACE AND IS DRAINING TO GRAVITY. NASAL TRUMPET TO L. NARE 30FR. AND FLORENCIO TO R. NARE, MEASURING 52CM. ADVANCED TUBE AT THIS TIME TO PREVIOUS DAY'S MEASUREMENT AT 62CM. DRESSING AND SECUREMENT DEVICE CHANGED. PT GIVEN FENTANYL FOR PAIN AND DISCOMFORT AT THIS TIME. CARE CONTINUES.
[2023-11-28] VITALS (30 sets, daily range): BP systolic 80–195; BP diastolic 41–111
[2023-11-28 04:26] LABS: BASOPHILS ABSOLUTE AUTO 0.02 K/mm3 (0.00-0.23); BASOPHILS PERCENT AUTO 0 % (0-2); EOSINOPHILS PERCENT AUTO 0 % (0-6); Hematocrit 29.1 % (33.0-51.0); IMMATURE GRAN ABSOLUTE AUTO 0.48 K/mm3 (0.00-0.10); IMMATURE GRAN PERCENT AUTO 3 % (0-1); LYMPHOCYTES ABSOLUTE AUTO 0.94 K/mm3 (0.84-5.20); LYMPHOCYTES PERCENT AUTO 7 % (21-46); MONOCYTES ABSOLUTE AUTO 0.72 K/mm3 (0.16-1.47); MONOCYTES PERCENT AUTO 5 % (4-13); Mean Corpuscular HGB 26.8 pg (26.0-34.0); Mean Corpuscular HGB Conc 30.9 g/dL (31.5-36.5); Mean Corpuscular Volume 87 fL (80-100); Mean Platelet Volume 10.6 fL (9.1-12.4); NEUTROPHILS ABSOLUTE AUTO 11.88 K/mm3 (1.96-9.15); NEUTROPHILS PERCENT AUTO 85 % (41-73); NRBC ABSOLUTE 0.05 K/mm3 (0.00-0.02); NRBC Auto 0.4 /100 WBC (0.0-0.2); Platelet Count 329 K/mm3 (150-400); RDW Coefficient Variation 15.3 % (11.7-14.2); RDW Standard Deviation 48.2 fL (35.1-46.3); Red Blood Cell Count 3.36 M/mm3 (3.80-5.20); White Blood Cell Count 14.04 K/mm3 (4.00-11.30)
[2023-11-28 04:40] LABS: International Normalized Ratio 1.07; Prothrombin Time Results 11.2 Sec (9.7-11.5)
[2023-11-28 04:44] LABS: Albumin, Blood 2.5 g/dL (3.4-5.0); Albumin/Globulin Ratio 0.6 (0.8-1.8); Bilirubin, Total 0.3 mg/dL (0.1-1.0); Calcium, Blood 8.3 mg/dL (8.5-10.1); Creatinine, Blood 1.43 mg/dL (0.40-1.00); Globulin, Blood 3.9 g/dL (2.2-4.0); Magnesium, Blood 2.6 mg/dL (1.6-2.4); Phosphorus, Blood 2.5 mg/dL (2.5-4.9); Potassium, Blood 4.9 mmol/L (3.5-5.5); Total Protein, Blood 6.4 g/dL (6.4-8.2)
--- NOTE | 2023-11-28 09:19 | NUR ---
ASSUMED CARE. TOOK REPORT FROM KYREE. PATIENT WAS DROWSY AND SOFTLY MOANING DURING BSSR. TUBE FEED WAS RUNING @25ML HR, PRECEDEX 0.4MCG. BIPAP SETTINGS HAD BEEN TITRATED DOWN TO 45% FIO2 AND 14/8. PT HAD NO VISIBLE BLEEDING AROUND BIPAP MASK. CONTINUE PLAN OF CARE.
--- NOTE | 2023-11-28 10:20 | NUR ---
DR. HERRERA IN TO EVALUATE PT, CHANGES MADE TO BIPAP 10/8 FIO2 35%. PT WITH INCREASED RESTLESSNESS AND CRYING OUT, "I CAN'T BREATHE". ATIVAN PER MAR GIVEN WITH GOOD RESULT. PT SATS 89-90%, CALMING REASSURANCE PROVIDED.
--- NOTE | 2023-11-28 10:27 | NUR ---
pt's tube feeding has been stopped per .
--- NOTE | 2023-11-28 11:14 | NUR ---
PT CONTINUED TO DROP INTO THE MID-HI 80'S FIO2 WAS INCREASED TO 40% ON BIPAP.
--- NOTE | 2023-11-28 12:13 | NUR ---
Spoke with pt's Jonny by phone, he states he's still planning to come see the patient today. Plan to meet with him when he arrives.
[2023-11-28] MEDS ORDERED: FentaNYL Citrate 50 MCG/ML 2 ML Injection IV PRN (12:45)
[2023-11-28] MEDS ORDERED: Morphine Sulfate 20 MG/1ML 1 ML Oral Syringe SL PRN (14:50)
[2023-11-28] MEDS ORDERED: Scopolamine Hydrobromide Patch TOP PRN (14:50)
[2023-11-28] MEDS ORDERED: HYDROmorphone HCl/Pf 1MG SYR IV PRN (14:50)
[2023-11-28] MEDS ORDERED: Morphine Sulfate 10 MG/ML 1MLSYR IV PRN (14:50)
[2023-11-28] MEDS ORDERED: Promethazine HCl 25 MG Supp PR PRN (14:50)
[2023-11-28] MEDS ORDERED: Atropine Sulfate 1% Opth Soln 2ML BTL SL PRN (14:50)
[2023-11-28] MEDS ORDERED: Ondansetron HCl 2 MG / ML 2ML Vial IV PRN (14:50)
[2023-11-28] MEDS ORDERED: LORazepam 2 MG/ML 1ML Injection IV PRN (14:50)
--- NOTE | 2023-11-28 14:54 | NUR ---
Pt's at bedside, he asks to "make her comfortable". We discussed use of medications, and explained we can remove the bipap along with medication use so the patient doesn't experience severe anxiety or air hunger. Jonny v/u. He states they have been for 50 years, and he doesn't want to let her go. However he also states he can tell she is "really anxious and uncomfortable". She does appear to be aware he is present, her eyes are open wide and she is attempting to pull at the mask. remains at bedside holding her hand, awaiting medication. Received comfort care orders from Dr. June.
[2023-11-28] MEDS ORDERED: LORazepam 2 MG/ML 1ML Injection ONE (15:38)
[2023-11-28] MEDS ORDERED: LORazepam 2 MG/ML 1ML Injection IV ONE (15:55)
--- NOTE | 2023-11-28 16:21 | NUR ---
SUMMARY OF EVENTS: ARRIVES AROUND 1430 TO SEE . DI LEOSHAIR SPRING WINDER COMES TO SPEAK WITH SPOUSE. AFTER CONVERSATION SPEAKS WITH AND DR. HERRERA, PT PLACED ON COMFORT CARE. MEDS OBTAINED AND RT IN ROOM. BIPAP MASK REMOVED AND MULTIPLE COMFORT MEDICATIONS GIVEN FOR PATIENT WHO WAS VISIBLY STRUGGLING FOR SOME TIME. SEE MAR. , PALLIATIVE RN, BEDSIDE RN AND STUDENT NURSE IN ROOM WITH AND PATIENT. AFTER ABOUT 60 MINUTES PT'S SAYS HE IS GOING TO LEAVE, AND DERIC BOTH SPOKE WITH HIM ABOUT THE SITUATION. CHOICE OF HOME OBTAINED AND SPOUSE ESCORTED OUT WITH TESTER ROCKET ENGINE. PT REMAINS QUIET AND BREATHING IS AUDIBLY GARGLY. STAFF REMAINS WITH PATIENT. COMFORT CARE CONTINUES.
--- NOTE | 2023-11-28 16:31 | NUR ---
"Spiritual Care | Comfort Care Support | [facility] Pt. displays evidence of great respiratory struggle. The Spouse had previously chose comfort care, but displayed limited health literacy as he begged the Pt. to talk to him. Prayed for Pt. and read scripture. Spouse verbalized that he could not be present when Pt passed. Listened with empathy and coached the Pt. to speak with words of selflessness to the Pt. Spouse verbalized [facility] for care though he displayed evidence of anxiety about cost of it. Scripture is read and more prayer is given before Spouse departed the hospital. Pt. continues to linger at the time of this posting."
--- NOTE | 2023-11-28 17:40 | NUR ---
pt continues on comfort care, her sats are 77% and her heart rate 60's. has been updated. pt being transferred to Medical floor to Olinda Aiken RN
--- NOTE | 2023-11-28 18:44 | NUR ---
1800 PATIENT TAKEN TO ROOM 338 TO CARE OF DI NAM. PT TRANSFERRED WELL, EYES OPENED TO MOVEMENT FROM BED TO BED. REPORT GIVEN AT BEDSIDE.
--- NOTE | 2023-11-28 18:52 | NUR ---
TRANSFER FROM ICU PATIENT TRANSFERED UP FROM ICU AT END OF SHIFT. PATIENT TRANSITIONED TO COMFORT CARE. PATIENT UNAROUSABLE, AGINAL BREATHING WITH OCCASIONAL MOANING. PATIENT IN ISOLATIONS BECAUSE OF RESPIRATORY ILLNESS. PATIENT MEDICATED FOR COMFORT.
--- NOTE | 2023-11-29 02:25 | NUR ---
PT PASSED; TIME NOTED 2133 ON 11/28/23. 2ND RN VERIFICATION COMPLETE WITH CHARGE NURSE/ALEKSANDRA LUZ. NOTIFIED ADDITIONAL CHARGE NURSE. CALLED TELEVISION OPERATOR DR GOMEZ. CALL TO PT SPOUSE TO NOTIFY; SPOUSE WAS EMOTIONAL. STATED NO FAMILY OR FRIENDS WITH HIM. HE COULD NOT COME TO HOSPITAL--SAID HE WOULD COME FOLLOWING DAY. ADVISED PT WOULD BE TRANSPORTED TO HOME WITH BELONGINGS. THE ONLY PERSONAL ITEM WAS A BLANKET. [facility]SHEA HERRERA.
== END 2023-11-28 21:34 | DRG 871 ==
LOC: ER 02:55 → PCU 03:33 → ICUE 10:04 → PCU 10:04 → ICUE 11-24 09:39 → MEDS 11-28 18:14
PROVIDERS: Emergency Medicine; Family Medicine; Internal Medicine; Internal Medicine Critical Care Medicine; Pharmacist; Student in an Organized Health Care Education/Training Program; ADMIT Family Medicine
PROC: 5A09557 Assistance with Respiratory Ventilation, Greater than 96 Consecutive Hours, Continuous Positive Airway Pressure (ICD-10-PCS; principal; 2023-11-20)
PROC: 0DH67UZ Insertion of Feeding Device into Stomach, Via Natural or Artificial Opening (ICD-10-PCS; 2023-11-25)
PROC: 0T9B70Z Drainage of Bladder with Drainage Device, Via Natural or Artificial Opening (ICD-10-PCS; 2023-11-25)
PROC: 4A133R1 Monitoring of Arterial Saturation, Peripheral, Percutaneous Approach (ICD-10-PCS; 2023-11-25)
PROC: 3E03329 Introduction of Other Anti-infective into Peripheral Vein, Percutaneous Approach (ICD-10-PCS; 2023-11-25)
DX: A41.89 Other specified sepsis (principal); J12.3 Human metapneumovirus pneumonia; J96.21 Acute and chronic respiratory failure with hypoxia; J96.22 Acute and chronic respiratory failure with hypercapnia; I13.0 Hypertensive heart and chronic kidney disease with heart failure and stage 1 through stage 4 chronic kidney disease, or unspecified chronic kidney disease; J44.0 Chronic obstructive pulmonary disease with (acute) lower respiratory infection; E87.0 Hyperosmolality and hypernatremia; I50.32 Chronic diastolic (congestive) heart failure; J44.1 Chronic obstructive pulmonary disease with (acute) exacerbation; F01.B11 Vascular dementia, moderate, with agitation; Z51.5 Encounter for palliative care; Z66 Do not resuscitate; R65.20 Severe sepsis without septic shock; J43.9 Emphysema, unspecified; N18.30 Chronic kidney disease, stage 3 unspecified; G40.909 Epilepsy, unspecified, not intractable, without status epilepticus; E03.9 Hypothyroidism, unspecified; B95.8 Unspecified staphylococcus as the cause of diseases classified elsewhere; W18.30XA Fall on same level, unspecified, initial encounter; Z88.2 Allergy status to sulfonamides; Z88.0 Allergy status to penicillin; Z88.8 Allergy status to other drugs, medicaments and biological substances; Z99.81 Dependence on supplemental oxygen; I48.91 Unspecified atrial fibrillation; Z86.73 Personal history of transient ischemic attack (TIA), and cerebral infarction without residual deficits; Z90.49 Acquired absence of other specified parts of digestive tract; Z79.82 Long term (current) use of aspirin; Z79.02 Long term (current) use of antithrombotics/antiplatelets; Z79.890 Hormone replacement therapy; Z79.2 Long term (current) use of antibiotics; Z79.899 Other long term (current) drug therapy; Z87.891 Personal history of nicotine dependence; Z77.22 Contact with and (suspected) exposure to environmental tobacco smoke (acute) (chronic); Z59.89 Other problems related to housing and economic circumstances; I10 Essential (primary) hypertension
CPT/HCPCS: 0202U; 0241U; 31720; 36600; 51702; 71045; 71046; 71260; 80047; 80048; 80053; 80202; 81001; 82330; 82803; 82947; 83605; 83735; 83880; 84100; 84145; 84484; 85014; 85025; 85379; 85610; 85730; 87040; 87070; 87077; 87086; 87106; 87205; 92526; 92610; 93005; 93010; 94640; 94660; 94664; 94760; 94762; 96365; 96375; 99285-25; A9270; C1751; C9113; J0360; J0456; J0692; J1170; J1650; J1940; J1953; J2060; J2270; J2405; J2920; J2930; J3010; J3370; J7030; J7040; J7050; Q9967